=== PATIENT | female | born 2000 | race Caucasian/White ===

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

== ENCOUNTER 2018-04-03 23:03 | Emergency (ER) | payer OTHER ==
[2018-04-03 23:54] VITALS: BP 137/92; PULSE 92; RESP 16; TEMP 98.3
[2018-04-03] MEDS ORDERED: DEXAMETHASONE SOD PHOSPHATE 10 MG/ML 1 ML VIAL IV STA (23:59)
[2018-04-03] MEDS ORDERED: CLARITHROMYCIN 500 MG TAB PO STA (23:59)
[2018-04-04] MEDS ORDERED: DEXAMETHASONE 4 MG TAB PO STA (00:04)
--- NOTE | 2018-04-04 00:04 | ED ---
ENT HPI - General Chief complaint: ENT Stated complaint: ENT Time Seen by Provider: 04/03/18 23:55 Source: patient Mode of arrival: ambulatory Limitations: no limitations - History of Present Illness Initial comments: This is a 17-year-old female the ER for evaluation. She presents today for evaluation of throat pain sore throat right ear pain. Symptoms ebbing 2 days or so. Patient is no other known significant contacts. No fevers. Patient denies any difficulty swallowing. Does admit to some swelling of her neck. complaint: sore throat -: days(s) (2) Location: R ear, throat Severity: mild Severity scale (1-10): 3 Quality: aching Consistency: constant Improves with: none Worsens with: none Context- Ear: other (Serum impaction) Associated Symptoms: sore throat - Related Data Previous Rx's Medication Instructions Recorded Famotidine [Pepcid] 40 mg PO HS #20 tab 12/15/17 Allergies Allergy/AdvReac Type Severity Reaction Status Date / Time amoxicillin Allergy Anaphylaxis Verified 04/03/18 23:54 Penicillins Allergy Anaphylaxis Verified 04/03/18 23:54 Review of Systems ROS Statement: Those systems with pertinent positive or pertinent negative responses have been documented in the HPI. ROS Other: All systems not noted in ROS Statement are negative. Past Medical History Past Medical History: Asthma History of Any Multi-Drug Resistant Organisms: None Reported Past Surgical History: No Surgical Hx Reported Past Psychological History: No Psychological Hx Reported Smoking Status: Never smoker Past Alcohol Use History: None Reported Past Drug Use History: None Reported General Exam Limitations: no limitations General appearance: alert, in no apparent distress Head exam: Present: atraumatic, normocephalic, normal inspection Eye exam: Present: normal appearance, PERRL, EOMI. Absent: scleral icterus, conjunctival injection, periorbital swelling ENT exam: Present: mucous membranes moist, TM's normal bilaterally (Right TM cerumen impaction), other (Bilateral pharyngeal erythema, tonsillar stones and edema, left-sided exudate) Neck exam: Present: normal inspection. Absent: tenderness, meningismus, lymphadenopathy Respiratory exam: Present: normal lung sounds bilaterally. Absent: respiratory distress, wheezes, rales, rhonchi, stridor Cardiovascular Exam: Present: regular rate, normal rhythm, normal heart sounds. Absent: systolic murmur, diastolic murmur, rubs, gallop, clicks GI/Abdominal exam: Present: soft, normal bowel sounds. Absent: distended, tenderness, guarding, rebound, rigid Extremities exam: Present: normal inspection, full ROM, normal capillary refill. Absent: tenderness, pedal edema, joint swelling, calf tenderness Back exam: Present: normal inspection Neurological exam: Present: alert, oriented X3, CN II-XII intact Psychiatric exam: Present: normal affect, normal mood Skin exam: Present: warm, dry, intact, normal color. Absent: rash Course Vital Signs 04/03/18 23:52 Temperature 98.3 F Pulse Rate 92 Respiratory 16 Rate Blood Pressure 137/92 O2 Sat by Pulse 100 Oximetry - Reevaluation(s) Reevaluation #1: 04/04/18 00:01 Medical record is reviewed Reevaluation #2: 04/04/18 00:01 Symptoms resolved or improved Medical Decision Making - Medical Decision Making 88 female the ER for evaluation. Patient resents today for sore throat. Patient has history of tonsillar stones, positive pharyngitis currently we'll place on antibiotics after getting steroid. Patient also has right ear irrigated, the hearing is much improved Disposition Clinical Impression: Acute pharyngitis, Tonsil stone, Impacted cerumen of right ear Disposition: HOME SELF-CARE Condition: Good Instructions: Pharyngitis (ED) Is patient prescribed a controlled substance at d/c from ED?: No Referrals: None,Stated [Primary Care Provider] - 1-2 days
== END 2018-04-04 00:45 | disposition home or self-care (01) ==
LOC: EC 23:03
DX: J35.8 Other chronic diseases of tonsils and adenoids (principal); H61.21 Impacted cerumen, right ear; Z88.0 Allergy status to penicillin; Z53.8 Procedure and treatment not carried out for other reasons
CPT/HCPCS: 99283; 69209; J8540

== ENCOUNTER 2018-06-04 19:09 | Emergency (ER) | payer OTHER ==
[2018-06-04 19:16] VITALS: TEMP 98.6
[2018-06-04] MEDS ORDERED: methylPREDNISolone SOD SUCCI 125 MG/2 ML VIAL IM ONE (19:35)
[2018-06-04] MEDS ORDERED: IPRATROPIUM-ALBUTEROL 3 ML NEB INHALATION STA (19:35)
[2018-06-04] MEDS ORDERED: guaiFENesin-DM 600/30MG 1 EACH TAB.ER.12H PO STA (19:35)
--- NOTE | 2018-06-04 19:38 | ED ---
General Adult HPI - General Chief complaint: Upper Respiratory Infection Stated complaint: CHEST CONGESTION, SORE THROAT Time Seen by Provider: 06/04/18 19:18 Source: patient Mode of arrival: ambulatory Limitations: no limitations - History of Present Illness Initial comments: 17-year-old female patient presents to the emergency department today for eval uation of cough, shortness of breath, hemoptysis. Patient states she's been coughing for the last 3 weeks. States after coughing she does have a knot-like pain to the left upper back. States that she has had hot and cold flashes and has felt feverish. States she is also experiencing sore throat with this. States that she does have a history of asthma. Patient states she has been coughing up "chunks" of blood. States her sister was diagnosed with influenza a couple of weeks ago and her mother was recently diagnosed. She denies taking any medications for symptoms. Patient denies any recent rash, abdominal pain, nausea, vomiting, diarrhea, constipation, back pain, numbness, tingling, dizziness, weakness, hematuria, dysuria, urinary urgency, urinary frequency, headache, visual changes, or any other complaints. - Related Data Home Medications Medication Instructions Recorded Confirmed Cetirizine HCl [Zyrtec] 10 mg PO DAILY PRN 06/04/18 06/04/18 Ibuprofen [Motrin] 800 mg PO DAILY PRN 06/04/18 06/04/18 Previous Rx's Medication Instructions Recorded Albuterol Sulfate [Proair Hfa] 1 - 2 puff INHALATION Q6HR PRN #1 06/04/18 inhaler guaiFENesin-DM 600/30MG [Mucinex 1 each PO Q12HR #10 tab.er.12h 06/04/18 Dm] predniSONE 50 mg PO DAILY #5 tablet 06/04/18 Allergies Allergy/AdvReac Type Severity Reaction Status Date / Time amoxicillin Allergy Anaphylaxis Verified 06/04/18 20:45 Penicillins Allergy Anaphylaxis Verified 06/04/18 20:45 Review of Systems ROS Statement: Those systems with pertinent positive or pertinent negative responses have been documented in the HPI. ROS Other: All systems not noted in ROS Statement are negative. Past Medical History Past Medical History: Asthma History of Any Multi-Drug Resistant Organisms: None Reported Past Surgical History: No Surgical Hx Reported Past Psychological History: No Psychological Hx Reported Smoking Status: Never smoker Past Alcohol Use History: None Reported Past Drug Use History: None Reported General Exam Limitations: no limitations General appearance: alert, in no apparent distress, other (Physical well- developed, well-nourished adult female patient in no acute distress. Vital signs upon presentation are temperature 98.6F, pulse 90, respirations 18, blood pressure 134/85, pulse ox 98% on room air.) Eye exam: Present: normal appearance, PERRL, EOMI. Absent: scleral icterus, conjunctival injection, periorbital swelling ENT exam: Present: normal exam, normal oropharynx, mucous membranes moist Respiratory exam: Present: normal lung sounds bilaterally. Absent: respiratory distress, wheezes, rales, rhonchi, stridor Cardiovascular Exam: Present: regular rate, normal rhythm, normal heart sounds. Absent: systolic murmur, diastolic murmur, rubs, gallop, clicks GI/Abdominal exam: Present: soft, normal bowel sounds. Absent: distended, ten derness, guarding, rebound, rigid Neurological exam: Present: alert, oriented X3, CN II-XII intact Psychiatric exam: Present: normal affect, normal mood Skin exam: Present: warm, dry, intact, normal color. Absent: rash Course Vital Signs 06/04/18 06/04/18 06/04/18 19:13 21:04 21:21 Temperature 98.6 F Pulse Rate 90 90 90 Respiratory 18 16 Rate Blood Pressure 134/85 145/90 O2 Sat by Pulse 98 97 Oximetry 06/04/18 21:33 Temperature Pulse Rate 88 Respiratory Rate Blood Pressure O2 Sat by Pulse Oximetry Medical Decision Making - Medical Decision Making 17-year-old female patient presents to the emergency department today for evaluation of cough 3 weeks. Patient reports some shortness of breath and pain to the left upper back with this. Physical examination is unremarkable. Lungs are clear to auscultation with good air movement. She is breathing without difficulty. Vitals were reviewed and were unremarkable. Patient does take control so we did obtain a d-dimer which was negative. Chest x-ray showed no acute cardiopulmonary process. Patient symptoms are consistent with acute bronchitis and we'll treat with Mucinex DM, steroids, and Pro Air inhaler. She'll be discharged to follow-up with her primary care physician for recheck in 1-2 days. Return parameters were discussed in detail. She verbalizes understanding and agrees with this plan. - Lab Data Lab Results 06/04/18 Range/Units 19:58 D-Dimer 0.40 (<0.60) mg/L FEU - Radiology Data Radiology results: report reviewed, image reviewed Two-view x-ray of the chest is obtained. Report was reviewed in its entirety. Impression by Dr. Lugo shows no active cardiopulmonary disease. Normal heart. No change. Disposition Clinical Impression: Acute bronchitis Disposition: HOME SELF-CARE Condition: Good Instructions (If sedation given, give patient instructions): Acute Bronchitis (ED) Additional Instructions: Take medications as directed. Follow up through primary care physician for recheck in 1-2 days. Return to the emergency department immediately for any new, worsening, or concerning symptoms. Prescriptions: guaiFENesin-DM 600/30MG [Mucinex Dm] 1 each PO Q12HR #10 tab.er.12h predniSONE 50 mg PO DAILY #5 tablet Albuterol Sulfate [Proair Hfa] 1 - 2 puff INHALATION Q6HR PRN #1 inhaler PRN Reason: Shortness Of Breath Is patient prescribed a controlled substance at d/c from ED?: No Referrals: None,Stated [Primary Care Provider] - 1-2 days Time of Disposition: 20:40
[2018-06-04] MEDS ORDERED: predniSONE 50 MG TAB PO STA (20:04)
--- NOTE | 2018-06-04 20:27 | XR ---
EXAMINATION TYPE: XR chest 2V DATE OF EXAM: 06/04/2018 COMPARISON: 09/10/2011 HISTORY: Cough TECHNIQUE: Frontal and lateral views of the chest are obtained. FINDINGS: Heart and mediastinum are normal. Lungs are clear. Diaphragm is normal. Bony thorax is int act. IMPRESSION: No active cardiopulmonary disease. Normal heart. No change.
[2018-06-04 21:06] VITALS: BP 145/90; RESP 16
[2018-06-04 21:35] VITALS: PULSE 88
== END 2018-06-04 21:40 | disposition home or self-care (01) ==
LOC: EC 19:09
DX: J20.9 Acute bronchitis, unspecified (principal); Z79.3 Long term (current) use of hormonal contraceptives; Z53.20 Procedure and treatment not carried out because of patient's decision for unspecified reasons; Z88.0 Allergy status to penicillin; Z87.09 Personal history of other diseases of the respiratory system
CPT/HCPCS: 36415; 94640; 85379; 71046; 99285; J7512

== ENCOUNTER 2019-01-30 14:21 | Emergency (ER) | payer OTHER ==
[2019-01-30] MEDS ORDERED: predniSONE 20 MG TAB PO STA (14:35)
[2019-01-30] MEDS ORDERED: FAMOTIDINE 20 MG TAB PO STA (14:35)
[2019-01-30] MEDS ORDERED: IPRATROPIUM-ALBUTEROL 3 ML NEB INHALATION STA (14:35)
--- NOTE | 2019-01-30 14:40 | ED ---
General Adult HPI - General Chief complaint: Upper Respiratory Infection Stated complaint: Cough Time Seen by Provider: 01/30/19 14:24 Source: patient Mode of arrival: ambulatory Limitations: no limitations - History of Present Illness Initial comments: Patient is a 18-year-old female with history of asthma as presenting to emergency Department with a chief complaint of a cough. Patient reports her symptoms initially began about 3 weeks or and of gradually increasing severity. Patient reports a productive cough with white/yellow sputum production, occasional wheezing and shortness of breath. Patient does report ear fullness but no otalgia. She is also complaining of a sore throat, sinus congestion and occasional lightheadedness after coughing fits. Patient reports she used an albuterol inhaler and DayQuil at home with minimal improvement. Patient states that she has chills but never actually taken her temperature. Patient denies nausea, vomiting, diarrhea, abdominal pain, back pain, chest pain. - Related Data Previous Rx's Medication Instructions Recorded Albuterol Sulfate [Proair Hfa] 1 - 2 puff INHALATION Q6HR PRN #1 06/04/18 inhaler Albuterol Inhaler [Ventolin Hfa 1 - 2 puff INHALATION RT-Q6H PRN 01/30/19 Inhaler] #1 inhaler Albuterol Nebulized [Ventolin 2.5 mg INHALATION Q4H PRN #25 nebu 01/30/19 Nebulized] Azithromycin [Zithromax Z-pack] 0 mg PO DIRECTED #1 pack 01/30/19 predniSONE 50 mg PO DAILY #5 tab 01/30/19 Allergies Allergy/AdvReac Type Severity Reaction Status Date / Time amoxicillin Allergy Anaphylaxis Verified 01/30/19 14:28 Penicillins Allergy Anaphylaxis Verified 01/30/19 14:28 Review of Systems ROS Statement: Those systems with pertinent positive or pertinent negative responses have been documented in the HPI. ROS Other: All systems not noted in ROS Statement are negative. Past Medical History Past Medical History: Asthma History of Any Multi-Drug Resistant Organisms: None Reported Past Surgical History: No Surgical Hx Reported Past Psychological History: No Psychological Hx Reported Smoking Status: Never smoker Past Alcohol Use History: None Reported Past Drug Use History: None Reported General Exam Limitations: no limitations General appearance: alert, in no apparent distress, obese (Morbidly obese) Head exam: Present: atraumatic, normocephalic, normal inspection Eye exam: Present: normal appearance Pupils: Present: normal accommodation ENT exam: Present: normal exam, normal oropharynx (Tonsil stones), mucous membranes moist, TM's normal bilaterally (Fluid behind tympanic membranes bilaterally.), normal external ear exam Neck exam: Present: normal inspection, full ROM Respiratory exam: Present: wheezes (Mild wheezing right lung.) Cardiovascular Exam: Present: regular rate, normal rhythm, normal heart sounds Extremities exam: Present: normal inspection, full ROM Back exam: Present: normal inspection, full ROM Neurological exam: Present: alert, oriented X3 Psychiatric exam: Present: normal affect, normal mood Skin exam: Present: warm, intact, normal color Course Vital Signs 01/30/19 01/30/19 01/30/19 14:26 15:05 15:11 Temperature 97.9 F Pulse Rate 111 H 112 H 102 H Respiratory 18 20 18 Rate Blood Pressure 144/84 O2 Sat by Pulse 96 Oximetry Medical Decision Making - Medical Decision Making Patient is a 18-year-old female with history of asthmas presenting to emergency Department with a chief complaint of a cough. Physical examination is only indicative of some mild wheezing bilaterally and fluid in the ears. Patient was given a DuoNeb treatment. On reevaluation patient reports improvement in her breathing resolution of the shortness of breath. On auscultation patient has no wheezing. Patient was given a penicillin 60 mg of prednisone. Patient will be discharged with 5 days of prednisone and a Z-Wilbert considering the patient has had the cough for about 3 weeks. Also for life warm for the patient to obtain a nebulizer and nebulizer albuterol. I also discussed the importance of establishing a relationship with a primary care physician considering she has a chronic condition. I suspect the patient has bronchitis and the coughing is only exacerbated due to the underlying asthma. Strict return parameters were thoroughly discussed with patient was understanding and agreeable. Case discussed physician. Disposition Clinical Impression: Bronchitis Disposition: HOME SELF-CARE Condition: Stable Instructions (If sedation given, give patient instructions): Acute Bronchitis (ED) Additional Instructions: Please take prescribed medication as directed. Please follow-up with primary care. Please return to emergency department if symptoms worsen. Prescriptions: predniSONE 50 mg PO DAILY #5 tab Albuterol Inhaler [Ventolin Hfa Inhaler] 1 - 2 puff INHALATION RT-Q6H PRN #1 inhaler PRN Reason: Shortness Of Breath Albuterol Nebulized [Ventolin Nebulized] 2.5 mg INHALATION Q4H PRN #25 nebu PRN Reason: difficulty in breathing Azithromycin [Zithromax Z-pack] 0 mg PO DIRECTED #1 pack Is patient prescribed a controlled substance at d/c from ED?: No Referrals: None,Stated [Primary Care Provider] - 1-2 days Josué Finch MD [REFERRING] - 1-2 days Time of Disposition: 15:28
[2019-01-30 14:41] VITALS: TEMP 97.9
--- NOTE | 2019-01-30 14:49 | XR ---
EXAMINATION TYPE: XR chest 2V DATE OF EXAM: 01/30/2019 COMPARISON: 06/04/2018 HISTORY: Cough TECHNIQUE: Frontal and lateral views of the chest are obtained. FINDINGS: Heart and mediastinum are normal. Lungs are clear. Diaphragm is normal. Bony thorax appear s normal. IMPRESSION: Normal chest. No change.
[2019-01-30 15:12] VITALS: RESP 18
[2019-01-30 15:46] VITALS: BP 140/78; PULSE 99
== END 2019-01-30 15:46 | disposition home or self-care (01) ==
LOC: EC 14:21
DX: J40 Bronchitis, not specified as acute or chronic (principal); J35.8 Other chronic diseases of tonsils and adenoids; Z88.0 Allergy status to penicillin
CPT/HCPCS: 94640; 71046; 99285; J7512

== ENCOUNTER 2019-04-25 23:29 | Outpatient (CLI) | payer SELFPAY ==
[2019-04-25] MEDS ORDERED: LACTATED RINGERS 1,000 ML IV SCH (23:45)
[2019-04-25] MEDS ORDERED: ONDANSETRON 4 MG/2 ML VIAL IVP STA (23:51)
[2019-04-26 00:18] LABS: Basophils # (A) 0.1 k/uL (0-0.2); Basophils % (A) 2 %; Eosinophils # (A) 0.1 k/uL (0-0.7); Eosinophils % (A) 1 %; HCT 38.1 % (34.0-46.0); HGB 12.4 gm/dL (11.4-16.0); Lymphocytes # (A) 1.5 k/uL (1.0-4.8); Lymphocytes % (A) 24 %; MCHC 32.6 g/dL (31.0-37.0); Mean Platelet Volume 6.9; Monocytes # (A) 0.5 k/uL (0-1.0); Monocytes % (A) 8 %; Neutrophils % (A) 63 %; Platelet Count 299 k/uL (150-450); RBC 4.28 m/uL (3.80-5.40); RDW 13.3 % (11.5-15.5); WBC 6.3 k/uL (4.0-11.0)
--- NOTE | 2019-04-26 00:54 | US ---
EXAMINATION TYPE: US OB >= 14 wk fetus DATE OF EXAM: 04/26/2019 COMPARISON: None CLINICAL HISTORY: No care Complete OB USDizziness. TECHNIQUE: Transabdominal (TA) GESTATIONAL AGE / DATING Physician Established: Not yet established Dates by LMP: (24 weeks/1 days) EDC: 08/15/2019 Dates by First Scan: No previous this is first scan Dates by Current Scan: (24 weeks/1 days) EDC: 08/15/2019 SURVEY IUP: Single PLACENTA: Posterior PREVIA: No Previa SARAH: 15.69 cm Normal CERVICAL LENGTH (transabdominal: norm > 3.0cm): 3.4 cm BIOMETRY PRESENTATION: Vertex LIE: Longitudinal BPD: 6.33 cm 25 weeks / 4 days HC: 21.96 cm 24 weeks / 0 days AC: 19.30 cm 24 weeks / 0 days FL: 4.44 cm 24 weeks / 4 days ESTIMATED WEIGHT IN GRAMS: 683.16 grams ESTIMATED WEIGHT IN LBS/OZ: 1 lbs. 8 oz. WEIGHT PERCENTAGE BASED ON ESTABLISHED DATES: 49% HC/AC: 1.14 cm Normal FL/AC: 22.99 cm Normal HEART RATE: 165 bpm RHYTHM: Normal MATERNAL WALL MEASUREMENT: 5.3 cm from skin to anterior uterine wall (if exam limited due to body hab itus). IMPRESSION: The ultrasound gestational age is 24 weeks and 1 day. No complicating process seen.
[2019-04-26 01:19] LABS: Appearance,Urine Clear (Clear); Bilirubin,Urine Negative (Negative); Blood,Urine Negative (Negative); Color,Urine Yellow; Glucose,Urine (UA) Negative (Negative); Ketones,Urine Negative (Negative); Leukocyte Esterase,Urine Negative (Negative); Nitrite,Urine Negative (Negative); Protein,Urine Negative (Negative); Urobilinogen,Urine <2.0 mg/dL (<2.0)
[2019-04-26 01:31] LABS: Amphetamine Screen,Urine Not Detected (NotDetected); Barbiturate Screen,Urine Not Detected (NotDetected); Benzodiazepines Screen,Urine Not Detected (NotDetected); Cocaine Screen,Urine Not Detected (NotDetected); Methadone Screen, Urine Not Detected (NotDetected); Opiate Screen,Urine Not Detected (NotDetected); Oxycodone Screen, Urine Not Detected (NotDetected); Phencyclidine Screen,Urine Not Detected (NotDetected); Tricyclic Antidepressant,Urine Not Detected (NotDetected); Urn Cannabinoid Scrn Not Detected (NotDetected)
[2019-04-26 02:20] VITALS: BP 138/81; PULSE 104; RESP 16; TEMP 98
[2019-04-26 14:02] LABS: HIV 1 AB Non-Reactive (Non-Reactive); HIV 2 AB Non-Reactive (Non-Reactive); HIV AB P24 Non-Reactive (Non-Reactive); HIV P24 AG Non-Reactive (Non-Reactive)
[2019-04-26 14:32] LABS: Hepatitis B Surface Antigen Non-Reactive (Non-Reactive)
--- NOTE | 2019-04-27 11:26 | P.MSEPDOC ---
Presenting Problems - Arrival Data Date of Arrival on Unit: 04/26/19 Time of Arrival on Unit: 23:29 Mode of Transport: Portable - Complaint OB-Reason for Admission/Chief Complaint: Other Comment: Patient here for decreased appetite. Patient has not received care but states she was seen at [facility] last week with high blood pressure. Medical History - Information : 1 Para: 0 Term: 0 : 0 Abortions: Spontaneous or Elective: 0 Number of Living Children: 1 - Gestational Age Gestational Age by VELIA (wks/days): 24 Weeks and 1 Days - History Complications: No Care Review of Systems - Review of Systems Constitutional: No problems Breast: No problems ENT: No problems Cardiovascular: No problems Respiratory: No problems Gastrointestinal: No problems Genitourinary: No problems Musculoskeletal: No problems Neurological: No problems Skin: No problems Vital Signs - Temperature Temperature: 98.0 F Temperature Source: Temporal Artery Scan - Pulse Right Brachial Pulse Rate: 104 Pulse Assessment Method: Automatic Cuff - Respirations Respiratory Rate: 16 Oxygen Delivery Method: Room Air O2 Sat by Pulse Oximetry: 100 - Blood Pressure Right Arm Blood Pressure: 138/81 Blood Pressure Mean: 100 Blood Pressure Source: Automatic Cuff Medical Screen Scoring (Pre) - Cervical Exam Dilation: Exam Deferred Effacement: Exam Deferred Membranes: Intact - Uterine Contractions Frequency: N/A Duration: N/A Intensity: N/A - Maternal Vital Signs Maternal Temperature: N/A Maternal Blood Pressure: N/A Signs of Preeclampsia: N/A Maternal Respirations: N/A - Maternal Trauma Maternal Trauma: N/A - Assessment - Baby A Baseline FHR: 145 - Total Score - Baby A Total Score - Baby A: 0 - Total Score - Baby B Total Score - Baby B: 0 - Total Score - Baby C Total Score - Baby C: 0 - Level of Risk - Baby A Level of Risk - Baby A: Low (0-5) - Level of Risk - Baby B Level of Risk - Baby B: Low (0-5) - Level of Risk - Baby C Level of Risk - Baby C: Low (0-5) Physician Notification (Pre) - Physician Notified Physician Notified Date: 04/26/19 Physician Notified Time: 00:41 New Order Received: Yes - Notification Comment Comment: Dr. Leon phoned in for update on triage patient. RN reported that . heart tones were between 140-150. Patients blood pressure was normal. RN awaiting labs. IV hydration infusing on patient. Patient states she feels improved. US completed. states patient may be discharged if labs returned normal and patient feels better. Patient updated on plan of care. Patients labs resulted. All labs WNL. Patients IV removed. Patient instructed to receive care as soon as possible. Discharge instructions given to patient.Patient and significant other state understanding. Disposition - Disposition OB Disposition: Discharge to home Discharge Date: 04/26/19 Discharge Time: 02:15 I agree with the RN Medical Screening Exam: Yes Risk & Benefit of care provided described in d/c instruction: Yes Diagnosis: RELATED CONDITIONS, UNSPECIFIED, SECOND TRIMESTER
[2019-04-28 11:15] LABS: C. trachomatis,PCR Negative (Neg,Equiv); Chlamydia trachomatis Source Urine
[2019-04-28 11:21] LABS: N. gonorrhoeae,PCR Negative (Neg,Equiv); Neisseria Source Urine
== END 2019-04-26 02:15 | disposition home or self-care (01) ==
LOC: FBPOP 23:29
PROVIDERS: ATTEND Obstetrics & Gynecology
DX: O26.92 Pregnancy related conditions, unspecified, second trimester (principal); Z3A.24 24 weeks gestation of pregnancy
CPT/HCPCS: 76805; 80306; 81003; 82947; 85025; 86762; 86780; 86850; 86900; 86901; 87340; 87390; 87491; 87591; 96360; 96361; 99214

== ENCOUNTER 2019-06-13 | Emergency (ER) | payer OTHER | END 2019-06-13 15:51 | disposition home or self-care (01) | CPT/HCPCS: 71046; 87502; 99283 ==

== ENCOUNTER 2020-01-16 13:40 | Emergency (ER) | payer OTHER ==
[2020-01-16 14:08] VITALS: BP 153/96; PULSE 90; RESP 18; TEMP 98.8
[2020-01-16] MEDS ORDERED: SODIUM CHLORIDE 0.9% 1,000 ML IV ONE (14:54)
[2020-01-16 15:15] LABS: Basophils % (A) 0 %; Eosinophils # (A) 0.1 k/uL (0-0.7); Eosinophils % (A) 1 %; HCT 42.8 % (34.0-46.0); HGB 13.7 gm/dL (11.4-16.0); Lymphocytes # (A) 1.6 k/uL (1.0-4.8); Lymphocytes % (A) 15 %; MCH 27.1 pg (25.0-35.0); MCHC 31.9 g/dL (31.0-37.0); MCV 84.8 fL (80.0-100.0); Mean Platelet Volume 6.2; Monocytes # (A) 0.6 k/uL (0-1.0); Monocytes % (A) 6 %; Neutrophils # (A) 8.3 k/uL (1.3-7.7); Neutrophils % (A) 77 %; Platelet Count 327 k/uL (150-450); RBC 5.05 m/uL (3.80-5.40); RDW 13.8 % (11.5-15.5); WBC 10.7 k/uL (3.8-10.6)
[2020-01-16 15:16] LABS: Appearance,Urine Clear (Clear); Bilirubin,Urine Negative (Negative); Blood,Urine Negative (Negative); Color,Urine Light Yellow; Glucose,Urine (UA) Negative (Negative); Ketones,Urine Negative (Negative); Leukocyte Esterase,Urine Negative (Negative); Nitrite,Urine Negative (Negative); Protein,Urine Negative (Negative); Specific Gravity,Urine 1.011 (1.001-1.035); Urobilinogen,Urine <2.0 mg/dL (<2.0)
[2020-01-16 15:25] LABS: ALT 148 U/L (4-34); AST 203 U/L (14-36); African American GFR (CKD) >90 (>60 ml/min/1.73 sqM); Albumin 4.1 g/dL (3.5-5.0); Alkaline Phosphatase 125 U/L (38-126); Anion Gap 7 mmol/L; Blood Urea Nitrogen 18 mg/dL (7-17); Calcium 9.7 mg/dL (8.4-10.2); Carbon Dioxide 26 mmol/L (22-30); Chloride 104 mmol/L (98-107); Glucose 104 mg/dL (74-99); Non-African American GFR(CKD) >90 (>60 ml/min/1.73 sqM); Potassium 4.6 mmol/L (3.5-5.1); Sodium 137 mmol/L (137-145); Total Bilirubin 0.7 mg/dL (0.2-1.3); Total Protein 7.1 g/dL (6.3-8.2)
--- NOTE | 2020-01-16 15:27 | US ---
EXAMINATION TYPE: US gallbladder DATE OF EXAM: 01/16/2020 COMPARISON: US CLINICAL HISTORY: pain . Pain EXAM MEASUREMENTS: Liver Length: 19.0 cm Gallbladder Wall: 0.2 cm CBD: 0.3 cm Right Kidney: 11.5 x 4.5 x 5.6 cm SEVERELY, morbidly obese pt Pancreas: wnl, tail obscured by overlying bowel gas Liver: Enlarged Gallbladder: Multiple, small, mobile gallstones Evidence for sonographic Salazar's sign: No CBD: wnl Right Kidney: wnl, lower pole gassed out IMPRESSION: There are numerous small gallstones. No dilated ducts. No focal liver defect.
[2020-01-16] MEDS ORDERED: MAG HYDROX/AL HYDROX/SIMETH 30 ML, HYOSCYAMINE ELIXIR 10 ML, LIDOCAINE VISCOUS 2% 10 ML PO STA ×3 (15:38)
--- NOTE | 2020-01-16 15:56 | ED ---
General Adult HPI - General Source: patient, RN notes reviewed, old records reviewed Mode of arrival: ambulatory Limitations: no limitations <Bill Das - Last Filed: 01/16/20 16:53> <Coty Cunha - Last Filed: 01/18/20 13:35> - General Chief complaint: Abdominal Pain Stated complaint: Abd Pain Time Seen by Provider: 01/16/20 14:13 - History of Present Illness Initial comments: 19-year-old female patient presents to ED for evaluation of abdominal discomfort. Patient reports that she ate a meal of hamburger's and about an hour later she developed a brown crampy feeling in her epigastric right upper quadrant region. Patient reports that this was quite severe. Patient reports that time of evaluation for discomfort has significantly improved. Patient states that she had a similar event about one week before. Reports some mild epigastric burning. Patient did deliver 6 months ago and is not currently breast-feeding. Systemic: Pt denies fatigue, fever/chills, rash. Pt denies weakness, night sweats, weight loss. Neuro: Pt denies headache, visual disturbances, syncope or pre-syncope. HEENT: Pt denies ocular discharge or irritation, otalgia, rhinorrhea, pharyngitis or notable lymphadenopathy. Cardiopulmonary: Pt denies chest pain, SOB, heart palpitations, dyspnea on exertion. Abdominal/GI: Pt denies n/v/d. : Pt denies dysuria, burning w/ urination, frequency/urgency. Denies new onset urinary or bowel incontinence. MSK: Pt denies myalgia, loss of strength or function in extremities. Neuro: Pt denies new onset weakness, paresthesias. (Bill Das) - Related Data Home Medications Medication Instructions Recorded Confirmed Acetaminophen Tab [Tylenol Tab] 1,000 mg PO Q6HR PRN 01/16/20 01/16/20 Albuterol Sulfate [Proair Hfa] 1 - 2 puff INHALATION RT-Q6H PRN 01/16/20 01/16/20 Norgestimate-Ethinyl Estradiol 1 tab PO DAILY@1100 01/16/20 01/16/20 [Sprintec 28 Day Tablet] Allergies Allergy/AdvReac Type Severity Reaction Status Date / Time amoxicillin Allergy Anaphylaxis Verified 01/16/20 15:41 Penicillins Allergy Anaphylaxis Verified 01/16/20 15:41 Review of Systems ROS Other: All systems not noted in ROS Statement are negative. <Bill Das - Last Filed: 01/16/20 16:53> ROS Other: All systems not noted in ROS Statement are negative. <Coty Cunha - Last Filed: 01/18/20 13:35> ROS Statement: Those systems with pertinent positive or pertinent negative responses have been documented in the HPI. Past Medical History Past Medical History: Asthma History of Any Multi-Drug Resistant Organisms: None Reported Past Surgical History: No Surgical Hx Reported Past Psychological History: No Psychological Hx Reported Smoking Status: Never smoker Past Alcohol Use History: Occasional Past Drug Use History: None Reported <Bill Das - Last Filed: 01/16/20 16:53> General Exam Limitations: no limitations <Bill Das - Last Filed: 01/16/20 16:53> - General Exam Comments Initial Comments: Constitutional: NAD, AOX3, Pt has pleasant affect. HEENT: NC/AT, trachea midline, neck supple, no lymphadenopathy. External ears appear normal, without discharge. Mucous membranes moist. Eyes PERRLA, EOM intact. There is no scleral icterus. No pallor noted. Cardiopulmonary: RRR, no murmurs, rubs or gallops, no JVD noted. Lungs CTAB in anterior and posterior rodney. No peripheral edema. Abdominal exam: Abdomen soft and non-distended. Abdomen mildly tender to palpation epigastric right upper quadrant region. Salazar sign negative.. Bowel sounds active in LLQ. No hepatosplenomegaly. No ecchymosis Neuro: CN II-XII grossly intact. No nuchal rigidity. MSK: No posterior calf tenderness bilaterally, homans sign negative bilaterally. Posterior tibialis and radial pulse +2 bilaterally. Sensation intact in upper and lower extremities. Full active ROM in upper and lower extremities, 5/5 stregnth. (Bill Das) Course Vital Signs 01/16/20 14:04 Temperature 98.8 F Pulse Rate 90 Respiratory 18 Rate Blood Pressure 153/96 O2 Sat by Pulse 100 Oximetry Medical Decision Making - Lab Data Result diagrams: 01/16/20 15:02 01/16/20 15:02 <Bill Das - Last Filed: 01/16/20 16:53> - Lab Data Result diagrams: 01/16/20 15:02 01/16/20 15:02 <Coty Cunha - Last Filed: 01/18/20 13:35> - Medical Decision Making 19-year-old female patient to ED for abdominal pain after eating a fatty meal. Patient vital signs are stable, afebrile. Physical examination display mild amount epigastric right upper quadrant discomfort. Laboratory investigations revealed mild leukocytosis mild transaminitis. Ultrasound displayed numerous gallstones no dilated ducts or focal liver defects. On repeat evaluation patient continues to feel very much improved. Repeat abdominal exam reveals nontender abdomen. I did offer patient [place] the hospital for surgical e valuation due to a gallbladder dysfunction biliary colic. Patient elected declined this time. With preferred to follow up on outpatient basis. I did provide patient surgical follow-up dietary recommendations and strict return precautions. She verbalizes understanding. Case discussed with Dr. Cunah. (Bill Das) I was available for consultation in the emergency department. The history and physical exam were done by the midlevel provider. I was consulted for this patients care. I reviewed the case with the midlevel provider and based on t heir presentation of the patient, I agree with the assessment, medical decision making and plan of care as documented. Chart was dictated using [employer] dictation software. Attempts were made to corre ct any dictation errors however some typographical errors may persist. Patient was seen during a national state of emergency due to the Covid-19 pandemic. (Coty Cunha) - Lab Data Lab Results 01/16/20 01/16/20 01/16/20 Range/Units 15:02 15:02 15:02 WBC 10.7 H (3.8-10.6) k/uL RBC 5.05 (3.80-5.40) m/uL Hgb 13.7 (11.4-16.0) gm/dL Hct 42.8 (34.0-46.0) % MCV 84.8 (80.0-100.0) fL MCH 27.1 (25.0-35.0) pg MCHC 31.9 (31.0-37.0) g/dL RDW 13.8 (11.5-15.5) % Plt Count 327 (150-450) k/uL Neutrophils % 77 % Lymphocytes % 15 % Monocytes % 6 % Eosinophils % 1 % Basophils % 0 % Neutrophils # 8.3 H (1.3-7.7) k/uL Lymphocytes # 1.6 (1.0-4.8) k/uL Monocytes # 0.6 (0-1.0) k/uL Eosinophils # 0.1 (0-0.7) k/uL Basophils # 0.0 (0-0.2) k/uL Sodium (137-145) mmol/L Potassium (3.5-5.1) mmol/L Chloride (98-107) mmol/L Carbon Dioxide (22-30) mmol/L Anion Gap mmol/L BUN (7-17) mg/dL Creatinine (0.52-1.04) mg/dL Est GFR (CKD-EPI)AfAm (>60 ml/min/1.73 sqM) Est GFR (CKD-EPI)NonAf (>60 ml/min/1.73 sqM) Glucose (74-99) mg/dL Calcium (8.4-10.2) mg/dL Total Bilirubin (0.2-1.3) mg/dL AST (14-36) U/L ALT (4-34) U/L Alkaline Phosphatase (38-126) U/L Total Protein (6.3-8.2) g/dL Albumin (3.5-5.0) g/dL Lipase (23-300) U/L Urine Color Light Yellow Urine Appearance Clear (Clear) Urine pH 7.0 (5.0-8.0) Ur Specific [place] 1.011 (1.001-1.035) Urine Protein Negative (Negative) Urine Glucose (UA) Negative (Negative) Urine Ketones Negative (Negative) Urine Blood Negative (Negative) Urine Nitrite Negative (Negative) Urine Bilirubin Negative (Negative) Urine Urobilinogen <2.0 (<2.0) mg/dL Ur Leukocyte Esterase Negative (Negative) Urine HCG, Qual Not Detected (Not Detectd) 01/16/20 Range/Units 15:02 WBC (3.8-10.6) k/uL RBC (3.80-5.40) m/uL Hgb (11.4-16.0) gm/dL Hct (34.0-46.0) % MCV (80.0-100.0) fL MCH (25.0-35.0) pg MCHC (31.0-37.0) g/dL RDW (11.5-15.5) % Plt Count (150-450) k/uL Neutrophils % % Lymphocytes % % Monocytes % % Eosinophils % % Basophils % % Neutrophils # (1.3-7.7) k/uL Lymphocytes # (1.0-4.8) k/uL Monocytes # (0-1.0) k/uL Eosinophils # (0-0.7) k/uL Basophils # (0-0.2) k/uL Sodium 137 (137-145) mmol/L Potassium 4.6 (3.5-5.1) mmol/L Chloride 104 (98-107) mmol/L Carbon Dioxide 26 (22-30) mmol/L Anion Gap 7 mmol/L BUN 18 H (7-17) mg/dL Creatinine 0.64 (0.52-1.04) mg/dL Est GFR (CKD-EPI)AfAm >90 (>60 ml/min/1.73 sqM) Est GFR (CKD-EPI)NonAf >90 (>60 ml/min/1.73 sqM) Glucose 104 H (74-99) mg/dL Calcium 9.7 (8.4-10.2) mg/dL Total Bilirubin 0.7 (0.2-1.3) mg/dL AST 203 H (14-36) U/L ALT 148 H (4-34) U/L Alkaline Phosphatase 125 (38-126) U/L Total Protein 7.1 (6.3-8.2) g/dL Albumin 4.1 (3.5-5.0) g/dL Lipase 88 (23-300) U/L Urine Color Urine Appearance (Clear) Urine pH (5.0-8.0) Ur Specific [place] (1.001-1.035) Urine Protein (Negative) Urine Glucose (UA) (Negative) Urine Ketones (Negative) Urine Blood (Negative) Urine Nitrite (Negative) Urine Bilirubin (Negative) Urine Urobilinogen (<2.0) mg/dL Ur Leukocyte Esterase (Negative) Urine HCG, Qual (Not Detectd) Disposition Is patient prescribed a controlled substance at d/c from ED?: No <Bill Das - Last Filed: 01/16/20 16:53> <Coty Cunha - Last Filed: 01/18/20 13:35> Clinical Impression: Biliary colic Disposition: HOME SELF-CARE Condition: Stable Instructions (If sedation given, give patient instructions): Biliary Colic (ED), Gallstones (ED), Low Fat Diet (ED) Additional Instructions: follow-up with primary care provider and surgeon tomorrow. Low-fat diet. Return to ER if any worsening symptoms. Referrals: None,Stated [Primary Care Provider] - 1-2 days Jamal Romero MD [STAFF PHYSICIAN] - 1-2 days Shelby Viera MD [REFERRING] - 1-2 days
== END 2020-01-16 16:12 | disposition home or self-care (01) ==
LOC: EC 13:40
DX: K80.70 Calculus of gallbladder and bile duct without cholecystitis without obstruction (principal); D72.829 Elevated white blood cell count, unspecified; R74.01 Elevation of levels of liver transaminase levels; J45.909 Unspecified asthma, uncomplicated; Z79.3 Long term (current) use of hormonal contraceptives; Z88.0 Allergy status to penicillin
CPT/HCPCS: 36415; 76705; 80053; 81003; 81025; 83690; 85025; 96360; 99284

== ENCOUNTER → 2021-01-11 | Outpatient (CLI) | payer OTHER ==
[2021-01-11 23:58] LABS: HCT 43.9 % (37.2-46.3); HGB 13.9 g/dL (12.0-15.0); MCH 27.9 pg (27.0-32.0); MCHC 31.7 g/dL (32.0-37.0); MCV 88.2 fL (80.0-97.0); Mean Platelet Volume 9.6 fL (9.5-12.2); Platelet Count 361 X 10*3/uL (140-440); RBC 4.98 X 10*6/uL (4.10-5.20); RDW 13.1 % (11.5-14.5); WBC 9.72 X 10*3/uL (4.50-10.00)
[2021-01-12 04:12] LABS: ALT 47 U/L (8-44); AST 21 U/L (13-35); African American GFR (CKD) 107.2 (60.0-200.0); Albumin 4.2 g/dL (3.8-4.9); Albumin/Globulin Ratio 1.63 (1.60-3.17); Alkaline Phosphatase 107 U/L (41-126); BUN/Creat Ratio 15.46 Ratio (12.00-20.00); Blood Urea Nitrogen 13.7 mg/dL (9.0-27.0); Calcium 9.5 mg/dL (8.7-10.3); Carbon Dioxide 18.4 mmol/L (21.6-31.8); Chloride 102 mmol/L (96-109); Chol/HDL Ratio 3.62 Ratio; Globulin 2.6 g/dL (1.6-3.3); Glucose 101 mg/dL (70-110); LDL Cholesterol,Calculated 98.4 mg/dL (0.0-131.0); Non-African American GFR(CKD) 92.5 (60.0-200.0); Potassium 4.4 mmol/L (3.5-5.5); Sodium 137 mmol/L (135-145); Total Bilirubin <0.20 mg/dL (0.30-1.20); Total Protein 6.8 g/dL (6.2-8.2)
== END | disposition home or self-care (01) ==
LOC: LABWHC1 16:13
PROVIDERS: ATTEND Physician Assistant Medical
DX: R00.2 Palpitations (principal); R53.83 Other fatigue
CPT/HCPCS: 36415; 80053; 80061; 83036; 84443; 85027

== ENCOUNTER 2021-04-01 22:33 | Emergency (ER) | payer OTHER ==
--- NOTE | 2021-04-01 23:00 | ED ---
General Adult HPI - General Stated complaint: Cough, SOB Source: patient, RN notes reviewed Mode of arrival: ambulatory Limitations: no limitations - History of Present Illness Initial comments: 20-year-old female presents emergency Department with chief complaint of possible COVID-19. He states that she was exposed by her son was positive for RSV and COVID-19. Patient states she has productive cough, coughing continuously. Patient states that she has been nauseated no fevers recently but states that she had fevers. Patient denies any nausea vomiting diarrhea constipation. Patient has no complaints. - Related Data Home Medications Medication Instructions Recorded Confirmed Acetaminophen Tab [Tylenol Tab] 1,000 mg PO Q6HR PRN 01/16/20 01/16/20 Albuterol Sulfate [Proair Hfa] 1 - 2 puff INHALATION RT-Q6H PRN 01/16/20 01/16/20 Norgestimate-Ethinyl Estradiol 1 tab PO DAILY@1100 01/16/20 01/16/20 [Sprintec 28 Day Tablet] Allergies Allergy/AdvReac Type Severity Reaction Status Date / Time amoxicillin Allergy Anaphylaxis Verified 01/16/20 15:41 Penicillins Allergy Anaphylaxis Verified 01/16/20 15:41 Review of Systems ROS Statement: Those systems with pertinent positive or pertinent negative responses have been documented in the HPI. ROS Other: All systems not noted in ROS Statement are negative. Past Medical History Past Medical History: Asthma History of Any Multi-Drug Resistant Organisms: None Reported Past Surgical History: No Surgical Hx Reported Past Psychological History: No Psychological Hx Reported Smoking Status: Never smoker Past Alcohol Use History: Occasional Past Drug Use History: None Reported General Exam General appearance: alert, in no apparent distress Head exam: Present: atraumatic, normocephalic, normal inspection Eye exam: Present: normal appearance, PERRL, EOMI. Absent: scleral icterus, conjunctival injection, periorbital swelling ENT exam: Present: normal exam, normal oropharynx, mucous membranes moist, TM's normal bilaterally Neck exam: Present: normal inspection, full ROM. Absent: tenderness, meningismus, lymphadenopathy Respiratory exam: Present: normal lung sounds bilaterally. Absent: respiratory distress, wheezes, rales, rhonchi, stridor Cardiovascular Exam: Present: regular rate, normal rhythm, normal heart sounds. Absent: systolic murmur, diastolic murmur, rubs, gallop, clicks Course Vital Signs 04/01/21 22:58 Temperature 98.3 F Pulse Rate 102 H Respiratory 18 Rate Blood Pressure 174/117 O2 Sat by Pulse 100 Oximetry Medical Decision Making - Medical Decision Making 20-year-old presented for possible COVID-19. Patient son recent is positive but also has RSV. Patient's COVID-19 is negative patient has no hypoxia patient was discharged in stable condition most likely related from RSV. - Lab Data Lab Results 04/01/21 Range/Units 23:01 Coronavirus (PCR) Not Detected (Not Detectd) Disposition Clinical Impression: URI (upper respiratory infection) Disposition: HOME SELF-CARE Condition: Stable Instructions (If sedation given, give patient instructions): Upper Respiratory Infection (ED) Additional Instructions: Please return to the Emergency Department if symptoms worsen or any other concerns. Is patient prescribed a controlled substance at d/c from ED?: No Referrals: Anamaria Casillas DO [Primary Care Provider] - 1-2 days Time of Disposition: 23:55
[2021-04-01 23:01] VITALS: PULSE 102; RESP 18; TEMP 98.3
[2021-04-02 00:19] VITALS: BP 160/98
== END 2021-04-02 00:15 | disposition home or self-care (01) ==
LOC: EC 22:33
DX: J06.9 Acute upper respiratory infection, unspecified (principal); J45.909 Unspecified asthma, uncomplicated; Z88.0 Allergy status to penicillin; Z20.822 Contact with and (suspected) exposure to COVID-19
CPT/HCPCS: 87635; 99283

== ENCOUNTER → 2021-05-01 | Outpatient (CLI) | payer OTHER ==
[2021-05-01 18:23] LABS: African American GFR (CKD) 110.4 (60.0-200.0); Albumin 4.1 g/dL (3.8-4.9); Anion Gap 12.3 mmol/L (10.00-18.00); BUN/Creat Ratio 18.38 Ratio (12.00-20.00); Blood Urea Nitrogen 15.9 mg/dL (9.0-27.0); Calcium 9.1 mg/dL (8.7-10.3); Carbon Dioxide 21.4 mmol/L (20.0-27.5); Non-African American GFR(CKD) 95.2 (60.0-200.0); Phosphorus 2.8 mg/dL (2.4-5.1); Potassium 4.2 mmol/L (3.5-5.5)
== END | disposition home or self-care (01) ==
LOC: LABWHC1 12:54
PROVIDERS: ATTEND Internal Medicine
DX: R06.00 Dyspnea, unspecified (principal); R00.2 Palpitations; R55 Syncope and collapse
CPT/HCPCS: 36415; 80069; 85379

== ENCOUNTER → 2021-05-06 | Outpatient (CLI) | payer OTHER | END | disposition home or self-care (01) | LOC: RADCTMAIN 08:30 | PROVIDERS: ATTEND Internal Medicine | DX: Z53.9 Procedure and treatment not carried out, unspecified reason (principal) ==

== ENCOUNTER → 2021-05-08 | Outpatient (CLI) | payer OTHER ==
--- NOTE | 2021-05-08 11:17 | CT ---
EXAMINATION TYPE: CT angio chest DATE OF EXAM: 05/08/2021 COMPARISON: Chest x-ray April 03, 2021 HISTORY: PE CT DLP: 915.80 mGycm. Automated Exposure Control for Dose Reduction was Utilized. CONTRAST: CTA scan of the thorax is performed without and with IV Contrast, patient injected with 100 ml mL of Isovue 370, pulmonary embolism protocol. MIP Images are created on CT scanner and reviewed. FINDINGS: Exam is noted suboptimal due to patient's large body habitus LUNGS: The lungs are grossly clear, there is no concerning parenchymal mass or nodule identified. T here is no pleural effusion or pneumothorax seen. The tracheobronchial tree is patent. MEDIASTINUM: There is poor opacification of the central pulmonary arteries. No large saddle central p ulmonary embolism. Exam is essentially nondiagnostic for emboli pass central branching level. Most de nse contrast within the SVC. There is hyperdense contrast in the aorta without aneurysm or dissection versus the pulmonary arteries. There are no greater than 1 cm hilar or mediastinal lymph nodes. No cardiomegaly or pericardial effusion is seen. OTHER: Visualized liver is hypodense consistent with diffuse fatty infiltration. There is S-shaped sc oliotic curvature. IMPRESSION: Suboptimal essentially nondiagnostic for acute pulmonary embolism. No acute pulmonary pro cess.
== END | disposition home or self-care (01) ==
LOC: RADCTMAIN 10:02
PROVIDERS: ATTEND Internal Medicine
DX: R06.02 Shortness of breath (principal); R00.0 Tachycardia, unspecified
CPT/HCPCS: 71275; Q9967

== ENCOUNTER 2022-01-10 19:14 | Emergency (ER) | payer OTHER ==
[2022-01-10 19:25] VITALS: BP 152/92; PULSE 97; RESP 18; TEMP 98.2
[2022-01-10] MEDS ORDERED: SODIUM CHLORIDE 0.9% 1,000 ML IV STA (21:27)
[2022-01-10] MEDS ORDERED: ONDANSETRON 4 MG/2 ML VIAL IVP STA ×2 (21:27→22:32)
[2022-01-10] MEDS ORDERED: ONDANSETRON ODT 4 MG TAB PO STA (22:20)
[2022-01-10 22:49] LABS: Basophils % (A) 0 %; Eosinophils # (A) 0.1 k/uL (0-0.7); Eosinophils % (A) 1 %; HCT 41.8 % (34.0-46.0); HGB 13.8 gm/dL (11.4-16.0); Lymphocytes % (A) 30 %; MCH 28.1 pg (25.0-35.0); MCV 85.3 fL (80.0-100.0); Mean Platelet Volume 7.1; Monocytes # (A) 0.5 k/uL (0-1.0); Monocytes % (A) 5 %; Neutrophils # (A) 6.4 k/uL (1.3-7.7); Neutrophils % (A) 63 %; Platelet Count 325 k/uL (150-450); RDW 13.6 % (11.5-15.5)
--- NOTE | 2022-01-10 22:50 | ED ---
General Adult HPI - General Chief complaint: Abdominal Pain Stated complaint: Back Pain,Nausea Time Seen by Provider: 01/10/22 20:01 Source: patient, RN notes reviewed Mode of arrival: ambulatory Limitations: no limitations - History of Present Illness Initial comments: 21-year-old female presents to the emergency department for evaluation of lower abdominal discomfort and cramping times one week. States she also has low back pain. Reports mild nausea. States she was recently sick with Covid. Took a home test that was positive. Last menstrual cycle was end of September/beginning of October. . Denies fever, chills, headache, dizziness, chest pain, shortness of breath, dysuria, hematuria, vaginal bleeding or discharge. - Related Data Home Medications Medication Instructions Recorded Confirmed Albuterol Sulfate [Proair Hfa] 2 puff INHALATION RT-Q6H PRN 01/16/20 01/10/22 Loratadine [Claritin] 10 mg PO DAILY 01/10/22 01/10/22 Allergies Allergy/AdvReac Type Severity Reaction Status Date / Time amoxicillin Allergy Anaphylaxis Verified 01/10/22 22:39 Penicillins Allergy Anaphylaxis Verified 01/10/22 22:39 Review of Systems ROS Statement: Those systems with pertinent positive or pertinent negative responses have been documented in the HPI. ROS Other: All systems not noted in ROS Statement are negative. Past Medical History Past Medical History: Asthma Additional Past Medical History / Comment(s): CVH History of Any Multi-Drug Resistant Organisms: None Reported Past Surgical History: No Surgical Hx Reported Past Psychological History: No Psychological Hx Reported Smoking Status: Never smoker Past Alcohol Use History: Occasional Past Drug Use History: None Reported General Exam Limitations: no limitations (Well-developed, well-nourished female in no acute distress. Initial temperature 98.2, pulse 77, respirations 18, blood pressure 152/92, pulse ox 99% on room air.) General appearance: alert, in no apparent distress ENT exam: Present: normal oropharynx, mucous membranes moist Respiratory exam: Present: normal lung sounds bilaterally. Absent: respiratory distress, wheezes, rales, rhonchi, stridor Cardiovascular Exam: Present: regular rate, normal rhythm, normal heart sounds. Absent: systolic murmur, diastolic murmur, rubs, gallop, clicks GI/Abdominal exam: Present: soft, normal bowel sounds. Absent: distended, tenderness, guarding, rebound, rigid Back exam: Present: normal inspection, full ROM. Absent: CVA tenderness (R), CVA tenderness (L), paraspinal tenderness, vertebral tenderness Neurological exam: Present: alert, oriented X3, CN II-XII intact, normal gait Psychiatric exam: Present: normal affect, normal mood Skin exam: Present: warm, dry, intact, normal color. Absent: rash Course Vital Signs 01/10/22 19:23 Temperature 98.2 F Pulse Rate 97 Respiratory 18 Rate Blood Pressure 152/92 O2 Sat by Pulse 99 Oximetry - Reevaluation(s) Reevaluation #1: 01/10/22 22:47 Upon reevaluation, patient reports feeling improved. She is reassured by the ultrasound report and does not wish to wait for lab results. Given the patient is well-appearing and in no acute distress, I feel that this was reasonable. She is scheduled to see OB this week. Medical Decision Making - Medical Decision Making This is a pleasant 21-year-old female, , LMP estimated to be the end of September, who presents to the emergency department for evaluation of nausea and abdominal pain with recent positive home test. Upon exam, patient is well-appearing and in no acute distress. She is tolerating oral intake with minimal difficulty. She was given Zofran for nausea and IV fluids with improvement. Laboratory studies were obtained and are unremarkable. Ultrasound shows intrauterine with no complicating process. Patient is reassured by these findings. She will be discharged home to to follow up with OB provider as scheduled this. Prescribed vitamin. Return parameters were discussed in detail. Patient verbalizes understanding and agrees with this plan. Attending: Sadi. - Lab Data Result diagrams: 01/10/22 22:26 01/10/22 22:26 Lab Results 01/10/22 01/10/22 01/10/22 Range/Units 22:26 22:26 22:26 WBC 10.0 (3.8-10.6) k/uL RBC 4.90 (3.80-5.40) m/uL Hgb 13.8 (11.4-16.0) gm/dL Hct 41.8 (34.0-46.0) % MCV 85.3 (80.0-100.0) fL MCH 28.1 (25.0-35.0) pg MCHC 33.0 (31.0-37.0) g/dL RDW 13.6 (11.5-15.5) % Plt Count 325 (150-450) k/uL MPV 7.1 Neutrophils % 63 % Lymphocytes % 30 % Monocytes % 5 % Eosinophils % 1 % Basophils % 0 % Neutrophils # 6.4 (1.3-7.7) k/uL Lymphocytes # 3.0 (1.0-4.8) k/uL Monocytes # 0.5 (0-1.0) k/uL Eosinophils # 0.1 (0-0.7) k/uL Basophils # 0.0 (0-0.2) k/uL Sodium 136 L (137-145) mmol/L Potassium 3.9 (3.5-5.1) mmol/L Chloride 100 (98-107) mmol/L Carbon Dioxide 23 (22-30) mmol/L Anion Gap 13 mmol/L BUN 10 (7-17) mg/dL Creatinine 0.63 (0.52-1.04) mg/dL Est GFR (CKD-EPI)AfAm >90 (>60 ml/min/1.73 sqM) Est GFR (CKD-EPI)NonAf >90 (>60 ml/min/1.73 sqM) Glucose 89 (74-99) mg/dL Calcium 9.6 (8.4-10.2) mg/dL Total Bilirubin 0.4 (0.2-1.3) mg/dL AST 26 (14-36) U/L ALT 46 H (4-34) U/L Alkaline Phosphatase 88 (38-126) U/L Total Protein 7.2 (6.3-8.2) g/dL Albumin 4.5 (3.5-5.0) g/dL Lipase 49 Cancelled (23-300) U/L HCG, Quant Cancelled 50697.2 - Radiology Data Radiology results: report reviewed, image reviewed OB ultrasound was obtained. Report was reviewed in its entirety. Impression per Dr. Guido is the ultrasound gestational age is 8 weeks and 1 day. No complicating process seen. Disposition Clinical Impression: Abdominal pain during in first trimester Disposition: HOME SELF-CARE Condition: Stable Instructions (If sedation given, give patient instructions): Abdominal Pain in (ED) Additional Instructions: Increase fluids. Follow-up with OB as scheduled this week. Return to the emergency department with any new, worsening or concerning symptoms. Is patient prescribed a controlled substance at d/c from ED?: No Referrals: Saskia Metzger DO [Primary Care Provider] - 1-2 days
[2022-01-11 03:49] LABS: ALT 46 U/L (4-34); AST 26 U/L (14-36); African American GFR (CKD) >90 (>60 ml/min/1.73 sqM); Albumin 4.5 g/dL (3.5-5.0); Alkaline Phosphatase 88 U/L (38-126); Anion Gap 13 mmol/L; Blood Urea Nitrogen 10 mg/dL (7-17); Calcium 9.6 mg/dL (8.4-10.2); Carbon Dioxide 23 mmol/L (22-30); Chloride 100 mmol/L (98-107); Glucose 89 mg/dL (74-99); Non-African American GFR(CKD) >90 (>60 ml/min/1.73 sqM); Potassium 3.9 mmol/L (3.5-5.1); Sodium 136 mmol/L (137-145); Total Bilirubin 0.4 mg/dL (0.2-1.3); Total Protein 7.2 g/dL (6.3-8.2)
--- NOTE | 2022-01-11 05:00 | US ---
EXAMINATION TYPE: Transabdominal DATE OF EXAM: 01/10/2022 10:20 PM COMPARISON: NONE CLINICAL HISTORY: lower abdominal and back pain; LMP October 2021. back pain EXAM PERFORMED: Transabdominal (TA) EXAM MEASUREMENTS: GESTATIONAL AGE / DATING Physician Established: Not yet established Dates by LMP: LMP unknown Dates by First Scan: No previous this is first scan Dates by Current Scan for: (8 weeks/1 days) EDC: 08/21/22 MATERNAL ANATOMY Uterus: 12.6 x 7.4 x 5.9cm Right Ovary: Not vis Left Ovary: Not vis Post CDS / Adnexa: WNL Presence of free fluid: No Presence of corpus luteal cyst: Not seen Presence of subchorionic bleed: No GESTATION / SURVEY CRL: 1.7 (8 weeks/1 days) Yolk Sac (normal less than 6mm): 4.5mm Heart Rate: 165 bpm Rhythm: Normal IUP: Viable IUP Date of LMP: LMP unknown Beta HcG (if available): N/A IMPRESSION: The ultrasound gestational age is 8 weeks and 1 day. No complication process seen.
[2022-01-11 05:19] LABS: HCG,Quantitative Serum 83198.2 mIU/mL
== END 2022-01-10 22:47 | disposition home or self-care (01) ==
LOC: SUPCPDRO 19:14 → EC 19:14
DX: O26.891 Other specified pregnancy related conditions, first trimester (principal); R10.30 Lower abdominal pain, unspecified; J45.909 Unspecified asthma, uncomplicated; Z88.0 Allergy status to penicillin; Z79.51 Long term (current) use of inhaled steroids; Z3A.01 Less than 8 weeks gestation of pregnancy
CPT/HCPCS: 36415; 80053; 83690; 85025; 84702; 76801; 96374; 96361; 99284; J2405

== ENCOUNTER 2022-07-12 20:11 | Observation (INO) | payer OTHER ==
[2022-07-12] MEDS ORDERED: LACTATED RINGERS 1,000 ML IV SCH (20:45)
[2022-07-12] MEDS ORDERED: NIFEdipine 10 MG CAP PO ONE (21:15)
[2022-07-12 21:19] LABS: Appearance,Urine Clear (Clear); Bilirubin,Urine Negative (Negative); Blood,Urine Negative (Negative); Color,Urine Yellow; Glucose,Urine (UA) Negative (Negative); Ketones,Urine Negative (Negative); Leukocyte Esterase,Urine Negative (Negative); Nitrite,Urine Negative (Negative); Protein,Urine Trace (Negative); Specific Gravity,Urine 1.029 (1.001-1.035); Urobilinogen,Urine <2.0 mg/dL (<2.0)
[2022-07-12 21:28] LABS: ALT 41 U/L (4-34); African American GFR (CKD) >90 (>60 ml/min/1.73 sqM); Blood Urea Nitrogen 9 mg/dL (7-17); Non-African American GFR(CKD) >90 (>60 ml/min/1.73 sqM)
[2022-07-12 21:29] LABS: Creatinine,Urine Random 206.3 mg/dL
[2022-07-12] MEDS ORDERED: BETAMET ACET-BETAMETH SOD PHOS 6 MG/ML MDV IM SCH (21:30)
[2022-07-12 21:41] LABS: AST 32 U/L (14-36); LDH 286 U/L (120-246)
[2022-07-12 21:42] LABS: INR 0.9 (<1.2)
[2022-07-12 21:43] LABS: Prothrombin Time 9.3 sec (9.0-12.0)
[2022-07-12] MEDS ORDERED: ACETAMINOPHEN TAB 500 MG TAB PO PRN (21:43)
[2022-07-12 21:52] LABS: Partial Thromboplastin Time 21.2 sec (22.0-30.0)
[2022-07-12 21:53] LABS: Basophils % (A) 0 %; Eosinophils # (A) 0.1 k/uL (0-0.7); Eosinophils % (A) 1 %; HCT 35.7 % (34.0-46.0); HGB 11.7 gm/dL (11.4-16.0); Lymphocytes # (A) 2.2 k/uL (1.0-4.8); Lymphocytes % (A) 25 %; MCH 28.4 pg (25.0-35.0); MCHC 32.7 g/dL (31.0-37.0); Mean Platelet Volume 6.8; Monocytes # (A) 0.5 k/uL (0-1.0); Monocytes % (A) 5 %; Neutrophils # (A) 5.9 k/uL (1.3-7.7); Neutrophils % (A) 67 %; Platelet Count 258 k/uL (150-450); RBC 4.11 m/uL (3.80-5.40); RDW 13.6 % (11.5-15.5); WBC 8.9 k/uL (3.8-10.6)
--- NOTE | 2022-07-12 22:18 | P.HPOB ---
History of Present Illness H&P Date: 07/12/22 Chief Complaint: Headache for 2 days, increased lower extremity edema. This is a 21-year-old female 2 para 1001 EDC 08/21/2022 established by 8 week ultrasound who presents at 34-2/7 weeks' gestation. Patient is on labetalol 100 mg twice daily for chronic hypertension, but has not taken the dosage for 24 hours. She states yesterday when she took labetalol 100 mg she became clammy, nauseated, and developed a headache. She was switched to Procardia today but has not had the prescription filled. She denies visual changes or right upper quadrant pain. Fetus is been active throughout the . Past medical history is significant for chronic hypertension, severe preeclampsia and 2020, asthma, and left ventricular hypertrophy followed by Dr. Galvin of cardiology. Past surgical history is negative. Family history is noncontributory. Social history patient is single, she is engaged to be , she lives in [facility], she is a nonsmoker and denies alcohol or drug use. history is significant for blood type B positive, rubella status nonimmune. VDRL testing, hepatitis B surface antigen, HIV testing, gonorrhea and chlamydia cultures all negative. GBS cultures not yet done. Past obstetric history significant for vaginal delivery at 37 weeks gestation in July 2019, at [facility] for severe preeclampsia after maternal transfer. She gave to a 7 lbs. 13 oz. liveborn male . On exam patient is 5 foot 3 inches, 398 pounds, blood pressure 169/91, repeat 160/82. After sitting for approximately 30 minutes, patient states her headache has resolved. Repeat blood pressure 140/94, 152/79, 140/94. The general physical exam reveals 2+ lower extremity edema, 2+ reflexes, chest clear to auscultation anteriorly and posteriorly, cardiac exam regular rate and rhythm, abdomen is obviously gravid with a fundal height of approximately 50 cm. Infant is vertex to Dago's maneuvers. heart rate is consistent with reactive NST with frequent accelerations. LDH elevated at 286, ALT slightly elevated at 41, AST 32, uric acid 5. Platelets 258,000, hemoglobin 11.7, hematocrit 35.7, WBCs 8.9. Impression: 34-2/7 weeks intrauterine , chronic hypertension, suspect superimposed preeclampsia with severe features. Morbid obesity, left ventricular hypertrophy, asthma. status reassuring. Plan: I discussed this case with at [facility] who is accepting maternal transfer. Betamethasone has been given 1. Procardia XL 20 mg given 1 with good preliminary results, most recent blood pressure 144/71. We discussed the option of magnesium sulfate which we will not begin at this point. Patient is aware of the need for transfer due to gestational age. All questions discussed. Review of Systems Constitutional: Reports as per HPI Past Medical History Past Medical History: Asthma Additional Past Medical History / Comment(s): CVH History of Any Multi-Drug Resistant Organisms: None Reported Past Surgical History: No Surgical Hx Reported Smoking Status: Never smoker Medications and Allergies Home Medications Medication Instructions Recorded Confirmed Type Albuterol Sulfate [Proair Hfa] 2 puff INHALATION RT-Q6H PRN 01/16/20 07/12/22 History Loratadine [Claritin] 10 mg PO DAILY 01/10/22 07/12/22 History Aspirin [Adult Low Dose Aspirin EC] 81 mg PO DAILY 07/12/22 07/12/22 History Labetalol [Trandate] 100 mg PO BID 07/12/22 07/12/22 History Vit No.179/Iron/Folic 1 each PO DAILY 07/12/22 07/12/22 History [ Tablet] Allergies Allergy/AdvReac Type Severity Reaction Status Date / Time amoxicillin Allergy Anaphylaxis Verified 07/12/22 20:23 Penicillins Allergy Anaphylaxis Verified 07/12/22 20:23 Exam Intake and Output 07/12/22 07/12/22 07/12/22 06:59 14:59 22:59 Other: Weight 180.53 kg See dictation under HPI please Results Result Diagrams: 07/12/22 20:55 Abnormal Lab Results - Last 24 Hours (Table) 07/12/22 07/12/22 Range/Units 20:50 20:55 Creatinine 0.47 L (0.52-1.04) mg/dL ALT 41 H (4-34) U/L Lactate Dehydrogenase 286 H (120-246) U/L Urine Protein Trace H (Negative) Assessment and Plan Assessment: 34-2/7 weeks intrauterine , chronic hypertension with superimposed preeclampsia with severe features, morbid maternal obesity, chronic asthma and history of left ventricular hypertrophy. status reassuring. Plan: After discussion with Dr. Grimm at [facility] we will transfer patient at this time. Betamethasone 12mg IM 1 has been given. Labs copied and sent. Consideration for magnesium sulfate, we'll hold at this time as blood pressure has improved on Procardia 20 mg XL orally x1. All questions answered. Time with Patient: Greater than 30
--- NOTE | 2022-07-12 22:37 | P.DS ---
Providers Date of admission: 07/12/22 Expected date of discharge: 07/12/22 Attending physician: Raissa Rubio Primary care physician: Stated None Hospital Course: This is a 21-year-old female 2 para 1001 EDC 07/22/2022 established by 8 week ultrasound who presents at 34-2/7 weeks' gestation with a history of chronic hypertension, superimposed preeclampsia with possible severe features. Patient has been thoroughly assessed and stabilized, Procardia 20 mg XL given 1 orally with good results. Admitting blood pressure 169/91 accompanied by headache, most recent blood pressure 140/84 with resolution of headache noted. status is reassuring. Patient has been given betamethasone 1. She is 5'3" and 398#. She has 2(+) lower extremity edema and normal 2 (+) relflexes. Please see my thoroughly dictated history and physical for details. Patient is being transferred to [facility] under the care of . Consideration has been given for magnesium sulfate and this will be determined pending further assessment at [facility]. Patient is aware of the risks of delivering a 34 week fetus at this institution. She does have a history of severe preeclampsia with vaginal delivery at [facility] in July 2019. She is being transferred by ambulance, all questions have been answered and I believe the patient is stable for transfer at this time. Patient Condition at Discharge: Fair Plan - Discharge Summary Discharge Rx Participant: No New Discharge Prescriptions: No Action Albuterol Sulfate [Proair Hfa] 2 puff INHALATION RT-Q6H PRN PRN Reason: Shortness Of Breath Loratadine [Claritin] 10 mg PO DAILY Aspirin [Adult Low Dose Aspirin EC] 81 mg PO DAILY Labetalol [Trandate] 100 mg PO BID Vit No.179/Iron/Folic [ Tablet] 1 each PO DAILY Discharge Medication List Albuterol Sulfate [Proair Hfa] 2 puff INHALATION RT-Q6H PRN 01/16/20 [History] Loratadine [Claritin] 10 mg PO DAILY 01/10/22 [History] Aspirin [Adult Low Dose Aspirin EC] 81 mg PO DAILY 07/12/22 [History] Labetalol [Trandate] 100 mg PO BID 07/12/22 [History] Vit No.179/Iron/Folic [ Tablet] 1 each PO DAILY 07/12/22 [History] Plan of Treatment: Transfer to [facility] in [place] by ambulance. All records copied. Patient aware of the risks and benefits of this plan of care.
[2022-07-12 23:38] VITALS: BP 169/91; PULSE 97; RESP 18; TEMP 97.2
== END 2022-07-12 23:30 | disposition short-term general hospital (02) ==
LOC: FBPOP 20:11 → INTOOBSV 21:48 → 4FBP 21:48 → UNDODISIN 23:30
PROVIDERS: ADMIT Obstetrics & Gynecology; ATTEND Obstetrics & Gynecology
DX: O14.93 Unspecified pre-eclampsia, third trimester (principal); O16.3 Unspecified maternal hypertension, third trimester; O99.213 Obesity complicating pregnancy, third trimester; O99.513 Diseases of the respiratory system complicating pregnancy, third trimester; J45.909 Unspecified asthma, uncomplicated; E66.01 Morbid (severe) obesity due to excess calories; Z88.0 Allergy status to penicillin; Z79.82 Long term (current) use of aspirin; Z79.899 Other long term (current) drug therapy; Z3A.34 34 weeks gestation of pregnancy
CPT/HCPCS: 36415; 59025; 81003; 82565; 82570; 83615; 84156; 84450; 84460; 84520; 84550; 85025; 85384; 85610; 85730; 96360; 96361; 99215

== ENCOUNTER 2022-07-17 13:33 | Inpatient (IN) | payer OTHER ==
[2022-07-17] MEDS ORDERED: MAGNESIUM SULFATE GM 6 GM in SODIUM CHLORIDE 0.9% 100 ML IVPB ONE (13:56)
[2022-07-17] MEDS: LACTATED RINGERS 1,000 ML IV SCH (14:06)
[2022-07-17 14:15] LABS: Basophils % (A) 0 %; Eosinophils # (A) 0.2 k/uL (0-0.7); Eosinophils % (A) 1 %; HCT 40.9 % (34.0-46.0); Lymphocytes # (A) 2.2 k/uL (1.0-4.8); Lymphocytes % (A) 17 %; MCH 29.2 pg (25.0-35.0); MCHC 34.3 g/dL (31.0-37.0); MCV 85.3 fL (80.0-100.0); Mean Platelet Volume 7.3; Monocytes # (A) 0.5 k/uL (0-1.0); Monocytes % (A) 4 %; Neutrophils # (A) 9.7 k/uL (1.3-7.7); Neutrophils % (A) 75 %; Platelet Count 349 k/uL (150-450); RDW 13.7 % (11.5-15.5); WBC 12.9 k/uL (3.8-10.6)
[2022-07-17 14:28] LABS: ALT 87 U/L (4-34); AST 39 U/L (14-36); African American GFR (CKD) >90 (>60 ml/min/1.73 sqM); Blood Urea Nitrogen 12 mg/dL (7-17); Non-African American GFR(CKD) >90 (>60 ml/min/1.73 sqM); Uric Acid 4.6 mg/dL (3.7-7.4)
[2022-07-17] MEDS: OXYTOCIN 30 UNITS/500 ML NS 30 UNIT in SALINE 1 500ML.BAG IV SCH (14:30)
[2022-07-17 14:37] LABS: LDH 266 U/L (120-246)
[2022-07-17] MEDS: MAGNESIUM SULFATE-WATER PMX 20 GM in WATER FOR INJECTION 1 500ML.BAG IV SCH ×2 (14:46→23:24)
[2022-07-17] MEDS ORDERED: VANCOMYCIN 2,000 MG in SODIUM CHLORIDE 0.9% 250 ML IVPB ONE (14:49)
[2022-07-17] MEDS ORDERED: VANCOMYCIN IV PER PHARMACY 1 EACH MISC MISCELLANE PRN (15:00)
[2022-07-17] MEDS ORDERED: VANCOMYCIN 2,000 MG in SODIUM CHLORIDE 0.9% 500 ML 500 ML IVPB ONE (15:30)
--- NOTE | 2022-07-17 17:29 | P.HPOB ---
History of Present Illness H&P Date: 07/17/22 Chief Complaint: Medical Induction of Labor Ms. Manning is a 21 year old at 35 weeks and 0 days (by 8 week US) who presents to labor and delivery for medical induction of labor for chronic hypertension with superimposed pre-eclampsia with severe features (blood pressu res). She was recently transferred to [facility] over the past weekend after having severe-range blood pressures in [facility] OB triage. At [place] she was stabilizted on Procardia XL 60 mg BID. However, on the evening of 07/15 she had sustained breakthrough severe-range blood pressures that required IV pushes of short-acting antihypertensives. The maternal medicine was following her closely and recommended induction of labor yesterday for and maternal well-being. The patient declined induction yesterday and left the hospital against medical advice. She presents today to be induced now that she is 35 weeks. The is complicated by maternal Class III obesity with a BMI of 70. Obstetric history: 1 vaginal delivery at 36 weeks and 5 days, medically induced for gestational hypertension Maternal serologies: blood type B positive, antibody negative, rubella NON- IMMUNE, VDRL non-reactive, HIV negative, HBsAg negative, 1 hour GTT 91, GBS UNKNOWN. Past Medical History Past Medical History: Asthma Additional Past Medical History / Comment(s): CVH History of Any Multi-Drug Resistant Organisms: None Reported Past Surgical History: No Surgical Hx Reported Past Anesthesia/Blood Transfusion Reactions: No Reported Reaction Past Psychological History: No Psychological Hx Reported Smoking Status: Never smoker Past Alcohol Use History: Occasional Past Drug Use History: None Reported - Past Family History Mother Family Medical History: Thyroid Disorder Medications and Allergies Home Medications Medication Instructions Recorded Confirmed Type Albuterol Sulfate [Proair Hfa] 2 puff INHALATION RT-Q6H PRN 01/16/20 07/17/22 History Loratadine [Claritin] 10 mg PO DAILY 01/10/22 07/17/22 History Aspirin [Adult Low Dose Aspirin EC] 81 mg PO DAILY 07/12/22 07/17/22 History Vit No.179/Iron/Folic 1 each PO DAILY 07/12/22 07/17/22 History [ Tablet] NIFEdipine XL [Procardia XL] 60 mg PO BID 07/17/22 07/17/22 History Allergies Allergy/AdvReac Type Severity Reaction Status Date / Time amoxicillin Allergy Anaphylaxis Verified 07/17/22 13:39 Penicillins Allergy Anaphylaxis Verified 07/17/22 13:39 Exam Vital Signs Temp Pulse Resp BP Pulse Ox 07/17/22 13:38 97.2 F L 106 H 18 173/106 99 Intake and Output 07/16/22 07/17/22 07/17/22 22:59 06:59 14:59 Other: Weight 179.169 kg Focused physical exam performed. This is a gravid woman in no apparent distress. Cervical exam is 1cm, long, and high. Results Result Diagrams: 07/17/22 14:07 07/17/22 14:07 Assessment and Plan Assessment: 21 year old at 35 weeks and 0 days (by 8 weeks US) who presents to labor and delivery for medical induction of labor for chronic hypertension with superimposed pre-eclampsia with severe features Plan: Admit, NPO, mIVF, plan for cooks catheter, low-dose oxytocin while cooks catheter in place followed by oxytocin per protocol. Magnsium Sulfate for seizure ppx. Continue Procardia 60mg BID. AROM when appropriate. Close monitoring of fetus and mother. Time with Patient: Greater than 30 (35 minutes)
[2022-07-17] MEDS: ACETAMINOPHEN TAB 325 MG TAB PO PRN (19:51)
[2022-07-17] MEDS: BUTORPHANOL 2 MG/ML 1 ML VIAL IV PRN (20:33)
[2022-07-18] MEDS ORDERED: VANCOMYCIN 1,000 MG in SODIUM CHLORIDE 0.9% 250 ML IVPB SCH (03:00)
[2022-07-18] MEDS: LACTATED RINGERS 1,000 ML IV SCH (03:17)
[2022-07-18] MEDS: BUTORPHANOL 2 MG/ML 1 ML VIAL IV PRN (08:01)
[2022-07-18] MEDS: ACETAMINOPHEN TAB 325 MG TAB PO PRN (08:55)
[2022-07-18] MEDS ORDERED: VANCOMYCIN 2,000 MG in SODIUM CHLORIDE 0.9% 500 ML 500 ML IVPB SCH (11:00)
[2022-07-18] MEDS ORDERED: MEASLES-MUMPS-RUBELLA VACC/PF 12,500 UNIT/0.5 ML VIAL SQ ONE (13:23)
[2022-07-18] MEDS ORDERED: HYDROCORTISONE 2.5% RECTAL CREAM 30 GM TUBE RECTAL PRN (13:23)
[2022-07-18] MEDS ORDERED: diphenhydrAMINE 25 MG CAP PO PRN (13:23)
[2022-07-18] MEDS ORDERED: ZOLPIDEM 5 MG TAB PO PRN (13:23)
[2022-07-18] MEDS ORDERED: diphenhydrAMINE 50 MG/ML 1 ML VIAL IVP PRN ×2 (13:23)
[2022-07-18] MEDS ORDERED: BENZOCAINE/MENTHOL SPRAY 1 GM/SPRAY AEROSOL TOPICAL PRN (13:23)
[2022-07-18] MEDS ORDERED: diphenhydrAMINE 50 MG CAP PO PRN (13:23)
[2022-07-18] MEDS ORDERED: LANOLIN CREAM 5 GM TUBE TOPICAL PRN (13:23)
[2022-07-18] MEDS ORDERED: miSOPROStoL 25 MCG TAB RECTAL STA (13:24)
[2022-07-18] MEDS ORDERED: miSOPROStoL 200 MCG TAB RECTAL STA (13:26)
[2022-07-18] MEDS ORDERED: OXYTOCIN 30 UNITS/500 ML NS 30 UNIT in SALINE 1 500ML.BAG IV SCH (13:30)
--- NOTE | 2022-07-18 13:30 | P.PROBDLV ---
Vaginal Delivery Note - . Vaginal Delivery Note: DATE OF SERVICE: 07/18/2022 PROCEDURE: Normal Vaginal Delivery ATTENDING: Dr. Elizabeth Linton MD ESTIMATED BLOOD LOSS: 300 mL FINDINGS: VMI, Weight 2475 grams, Apgars 7/9 PROCEDURE: Patient was a 21 y/o at 35 weeks and 1 day who presented to labor and delivery for medical induction of labor for chronic hypertension with superimposed preeclampsia. Please see the admitting H&P for further details on diagnosis and management of this condition. The patient was started on Magnesium Sulfate at arrival, cooks catheter was placed, and low-dose pitocin was started. The cooks catheter fell out after about 6-7 hours and pitocin per protocol was started. The patient progressed to complete dilation. She pushed the head very effectively. Head delivered without difficulty followed by shoulders and body over intact perineum. Infant placed on maternal abdomen and bulb suctioned. Cord was clamped and cut. The was handed off to the Pediatric team. Placenta delivered whole with gentle cord traction. Oxytocin was started to facilitate uterine tone. Uterine fundus firm and bleeding minimal upon fundal massage. Perineal inspection revealed no lacerations. Patient stable . Will plan for 24 hours of Magnesium sulfate .
[2022-07-18] MEDS: IBUPROFEN 600 MG TAB PO PRN ×2 (13:32→21:09)
[2022-07-18] MEDS: OXYTOCIN 30 UNITS/500 ML NS 30 UNIT in SALINE 1 500ML.BAG IV SCH ×2 (13:34→15:25)
[2022-07-18] MEDS: MAGNESIUM SULFATE-WATER PMX 20 GM in WATER FOR INJECTION 1 500ML.BAG IV SCH (21:10)
[2022-07-19] MEDS: LACTATED RINGERS 1,000 ML IV SCH ×2 (04:34→05:30)
[2022-07-19] MEDS: MAGNESIUM SULFATE-WATER PMX 20 GM in WATER FOR INJECTION 1 500ML.BAG IV SCH ×2 (04:35→05:32)
[2022-07-19] MEDS: SENNOSIDES-DOCUSATE SODIUM 1 EACH TAB PO SCH ×3 (04:35→21:25)
[2022-07-19 07:18] LABS: Basophils % (A) 0 %; Eosinophils # (A) 0.1 k/uL (0-0.7); Eosinophils % (A) 1 %; HCT 33.1 % (34.0-46.0); Lymphocytes # (A) 2.6 k/uL (1.0-4.8); Lymphocytes % (A) 23 %; MCH 28.9 pg (25.0-35.0); MCHC 33.2 g/dL (31.0-37.0); MCV 87.2 fL (80.0-100.0); Mean Platelet Volume 6.8; Monocytes # (A) 0.7 k/uL (0-1.0); Monocytes % (A) 6 %; Neutrophils # (A) 8.1 k/uL (1.3-7.7); Neutrophils % (A) 69 %; Platelet Count 376 k/uL (150-450); RBC 3.79 m/uL (3.80-5.40); RDW 13.3 % (11.5-15.5); WBC 11.7 k/uL (3.8-10.6)
--- NOTE | 2022-07-19 08:41 | P.PNOBGVD ---
Subjective - Subjective Principal diagnosis: s/p vaginal delivery Interval history: The patient is doing well this morning and had no acute events overnight. She has no complaints this morning. She reports minimal lochia, passing flatus, voiding without difficulty, ambulating, and eating/drinking without nausea or vomiting. Infant male doing well in the nursery for prematurity. She denies chest pain, shortness of breathing, fevers, or chills overnight. She denies headache, visual disturbances, RUQ pain. She has mild swelling bilaterally in the legs. She denies pain in the legs. Patient reports: Reports appetite normal, Reports voiding normally, Reports pain well controlled, Reports ambulating normally : doing well Objective - Latest Vital Signs Latest vital signs: Vital Signs Temp Pulse Resp BP Pulse Ox 07/19/22 06:00 94 106/59 07/19/22 04:00 96.8 F L 96 16 109/54 99 07/19/22 01:00 97.0 F L 113 H 16 113/58 100 07/18/22 23:47 98.5 F 89 16 07/18/22 20:00 98.1 F 88 16 132/81 07/18/22 18:00 16 144/78 07/18/22 16:00 97.3 F L 89 16 148/76 98 07/18/22 15:15 96.6 F L 86 16 144/84 98 07/18/22 14:45 88 18 153/76 07/18/22 14:30 94 18 153/74 97 07/18/22 14:15 92 16 151/69 98 07/18/22 14:00 94 16 144/67 97 07/18/22 13:45 83 16 141/62 99 07/18/22 13:30 96.8 F L 95 16 157/71 98 Intake and Output 07/18/22 07/19/22 07/19/22 22:59 06:59 14:59 Intake Total 3.7 618.333 Output Total 428 600 400 Balance -424.3 18.333 -400 Intake: IV 200 Intake, IV Titration 3.7 418.333 Amount Magnesium Sulfate-Water 418.333 Pmx 20 gm In Water For Injection 1 500ml.bag @ 2 GM/HR 50 mls/hr IV .[facility]10[facility] Rx#:[id number] Oxytocin 30 Units/500 ml 3.7 Ns 30 unit In Saline 1 500ml.bag @ Per Protocol IV .Q0M [facility] Rx#:[id number] Output: Urine 600 400 Output, Quantitative 428 Blood Loss Other: # Voids 1 2 1 - Exam Extremities: Present: normal Abdomen: Present: normal appearance, soft Uterus: Present: normal, firm - Labs Labs: Abnormal Lab Results - Last 24 Hours (Table) 07/19/22 Range/Units 06:37 WBC 11.7 H (3.8-10.6) k/uL RBC 3.79 L (3.80-5.40) m/uL Hgb 11.0 L D (11.4-16.0) gm/dL Hct 33.1 L (34.0-46.0) % Neutrophils # 8.1 H (1.3-7.7) k/uL Assessment and Plan Assessment: 21 year old day #1 s/p vaginal delivery after medical induction for cHTN with superimposed preE with severe features at 35 weeks and 1 day gestation Plan: 1. . Meeting all milestones appropriately 2. cHTN with SI preE w/ SF - continue Procardia XL 60 mg BID. continue to monitor blood pressure. Normotensive overnight. Continue mag sulfate for 24 hours . Patient has also already made a f/u appointment with her cotton ball machine tender on 08/08. 3. Viable male infant doing well in nursery. Not ready for circumcision yet, per peds. Dispo: Continue inpatient management. Anticipate discharge home tomorrow.
[2022-07-19] MEDS: IBUPROFEN 600 MG TAB PO PRN ×2 (09:10→21:11)
[2022-07-19] MEDS: SIMETHICONE 80 MG CHEWABLE PO PRN (17:57)
[2022-07-20] MEDS: LACTATED RINGERS 1,000 ML IV SCH ×2 (02:04→09:13)
[2022-07-20] MEDS: IBUPROFEN 600 MG TAB PO PRN (09:05)
[2022-07-20] MEDS: SIMETHICONE 80 MG CHEWABLE PO PRN (09:07)
[2022-07-20 09:10] VITALS: BP 137/84; PULSE 105; RESP 18; TEMP 97.8
[2022-07-20] MEDS: SENNOSIDES-DOCUSATE SODIUM 1 EACH TAB PO SCH (09:13)
--- NOTE | 2022-07-20 10:32 | P.DS ---
Providers Date of admission: 07/17/22 13:33 Expected date of discharge: 07/20/22 Attending physician: Elizabeth Linton MD Primary care physician: Stated None - Discharge Diagnosis(es) (1) 35 weeks gestation of Current Visit: Yes Status: Acute (2) Chronic hypertension Current Visit: Yes Status: Acute (3) Status post vaginal delivery Current Visit: Yes Status: Acute (4) Preeclampsia Current Visit: No Status: Acute Hospital Course: This is a 21 yo at 35 weeks, that presents for induction of labor secondary to chronic hypertension with superimposed preeclampsia. Severe blood pressures were noted therefore induction of labor was discussed. Patient had recently been transferred to [facility] over the weekend with severe range blood pressures, she was stabilized at [facility] with Procardia XL 60 mg twice a day. Maternal- medicine were following her closely and recommended induction of labor for and maternal well-being. Patient declined induction and left AGAINST MEDICAL ADVICE. Patient presents today for induction at [facility] as she is 35 weeks. This has been completed by class III obesity with a BMI of 70. Patient was admitted and cut catheter was placed, along with low-dose Pitocin. The catheter did fall out after about 6-7 hours and Pitocin was begun per hospital protocol. Patient did progress to complete dilation. Patient had a normal spontaneous vaginal delivery of a viable female , at 1303, weight of 6-0.8 No lacerations were appreciated after delivery. Patient did have a hemorrhage and 1000 g of rectal Cytotec were given. Bleeding slowed and the uterine fundus was noted to be firm. Patient was placed on magnesium sulfate given her preeclampsia diagnosis. On preeclampsia labs elevated AST a LT were appreciated. On this day #2 patient is ambulating and voiding without difficulty. She denies signs or symptoms of preeclampsia. Repeat liver function tests are pending. remains in the nursery. Assuming liver function tests are trending downward we'll plan discharge home with follow-up in 1 week for blood pressure check Patient Condition at Discharge: Good Plan - Discharge Summary New Discharge Prescriptions: No Action Albuterol Sulfate [Proair Hfa] 2 puff INHALATION RT-Q6H PRN PRN Reason: Shortness Of Breath Loratadine [Claritin] 10 mg PO DAILY Aspirin [Adult Low Dose Aspirin EC] 81 mg PO DAILY NIFEdipine XL [Procardia XL] 60 mg PO BID Vit No.179/Iron/Folic [ Tablet] 1 each PO DAILY Discharge Medication List Albuterol Sulfate [Proair Hfa] 2 puff INHALATION RT-Q6H PRN 01/16/20 [History] Loratadine [Claritin] 10 mg PO DAILY 01/10/22 [History] Aspirin [Adult Low Dose Aspirin EC] 81 mg PO DAILY 07/12/22 [History] Vit No.179/Iron/Folic [ Tablet] 1 each PO DAILY 07/12/22 [History] NIFEdipine XL [Procardia XL] 60 mg PO BID 07/17/22 [History] Follow up Appointment(s)/Referral(s): Elizabeth Linton MD [STAFF PHYSICIAN] - 1 Week Patient Instructions/Handouts: Vaginal Delivery (GEN), Vaginal Delivery (DC) Activity/Diet/Wound Care/Special Instructions: No tub baths or intercourse until 6 weeks . Patient is counseled on signs and symptoms of preeclampsia. Patient is to continue her Procardia 60 mg twice daily, close follow-up in 1 week for blood pressure check Discharge Disposition: HOME SELF-CARE
[2022-07-20 12:09] LABS: ALT 57 U/L (4-34); AST 26 U/L (14-36)
== END 2022-07-20 14:35 | disposition home or self-care (01) | DRG 560 ==
LOC: 4FBP 13:33
PROVIDERS: ADMIT Obstetrics & Gynecology; ATTEND Obstetrics & Gynecology
PROC: 10E0XZZ Delivery of Products of Conception, External Approach (ICD-10-PCS; principal; 2022-07-18)
PROC: 3E033VJ Introduction of Other Hormone into Peripheral Vein, Percutaneous Approach (ICD-10-PCS; 2022-07-18)
DX: O11.4 Pre-existing hypertension with pre-eclampsia, complicating childbirth (principal); O10.92 Unspecified pre-existing hypertension complicating childbirth; O72.1 Other immediate postpartum hemorrhage; O99.214 Obesity complicating childbirth; O99.52 Diseases of the respiratory system complicating childbirth; Z37.0 Single live birth; Z3A.35 35 weeks gestation of pregnancy; J45.909 Unspecified asthma, uncomplicated; E66.01 Morbid (severe) obesity due to excess calories; Z79.82 Long term (current) use of aspirin; Z79.899 Other long term (current) drug therapy
CPT/HCPCS: 82565; 83615; 84450; 84460; 84520; 84550; 85025; 88307; 90707

== ENCOUNTER 2023-10-18 22:59 | Emergency (ER) | payer OTHER ==
[2023-10-18 23:10] VITALS: RESP 18; TEMP 98.1
--- NOTE | 2023-10-19 00:25 | ED ---
Lower Extremity Injury HPI - General Chief Complaint: Extremity Injury, Lower Stated Complaint: Left ankle injury Time Seen by Provider: 10/18/23 23:39 Source: patient, RN notes reviewed Mode of arrival: ambulatory Limitations: no limitations - History of Present Illness Initial Comments: This is a 23-year-old female who presents to the emergency department for a left ankle injury. States that she fell last night and rolled her left ankle. Denies sustaining any other injuries. However, states that since then she has had difficulty ambulating. She has noticed a bump on the top of her ankle as well. She was at work all day and on her feet which she believes further exacerbated this. - Related Data Home Medications Medication Instructions Recorded Confirmed Albuterol Sulfate [Proair Hfa] 2 puff INHALATION RT-Q6H PRN 01/16/20 07/17/22 Loratadine [Claritin] 10 mg PO DAILY 01/10/22 07/17/22 Aspirin [Adult Low Dose Aspirin EC] 81 mg PO DAILY 07/12/22 07/17/22 Vit No.179/Iron/Folic 1 each PO DAILY 07/12/22 07/17/22 [ Tablet] NIFEdipine XL [Procardia XL] 60 mg PO BID 07/17/22 07/17/22 Allergies Allergy/AdvReac Type Severity Reaction Status Date / Time amoxicillin Allergy Anaphylaxis Verified 07/17/22 13:39 Penicillins Allergy Anaphylaxis Verified 07/17/22 13:39 Review of Systems ROS Statement: Those systems with pertinent positive or pertinent negative responses have been documented in the HPI. ROS Other: All systems not noted in ROS Statement are negative. Past Medical History Past Medical History: Asthma Additional Past Medical History / Comment(s): CVH History of Any Multi-Drug Resistant Organisms: None Reported Past Surgical History: No Surgical Hx Reported Past Anesthesia/Blood Transfusion Reactions: No Reported Reaction Past Psychological History: No Psychological Hx Reported Smoking Status: Never smoker Past Alcohol Use History: Occasional Past Drug Use History: None Reported - Past Family History Mother Family Medical History: Thyroid Disorder General Exam Limitations: no limitations General appearance: alert, in no apparent distress Head exam: Present: atraumatic, normocephalic, normal inspection Respiratory exam: Present: normal lung sounds bilaterally. Absent: respiratory distress, wheezes, rales, rhonchi, stridor Cardiovascular Exam: Present: regular rate, normal rhythm, normal heart sounds. Absent: systolic murmur, diastolic murmur, rubs, gallop, clicks Extremities exam: Present: other (Tenderness to palpation over the anterior aspect of the left ankle. Minor swelling. Full range of motion. 2+ DP and PT pulses.) Neurological exam: Present: alert, oriented X3, CN II-XII intact Psychiatric exam: Present: normal affect, normal mood Skin exam: Present: warm, dry, intact, normal color. Absent: rash Course Vital Signs 10/18/23 10/19/23 23:06 00:56 Temperature 98.1 F Pulse Rate 95 94 Respiratory 18 18 Rate Blood Pressure 151/99 150/86 O2 Sat by Pulse 100 98 Oximetry Medical Decision Making - Medical Decision Making This is a 23 year old female who presents to the emergency department for a left ankle injury. Was pt. sent in by a medical professional or institution? @ -No Did you speak to anyone other than the patient for history? @ -No Did you review nursing and triage notes? @ -Yes, and I agree, it is accurate with regards to the patient's symptoms. Were old charts reviewed? @ -No Differential Diagnosis? @ -Differential Musculoskeletal: Muscular strain, contusion, ligament sprain, fracture, arthritis, septic arthritis, bursitis, cellulitis, muscle spasm, nerve compression, DVT, arterial occlusion, herpes zoster, electrolyte abnormality, tumor.... This is not meant to be in all inclusive list EKG interpreted by me (3pts min.)? @ -Not obtained X-rays interpreted by me (1pt min.)? @ -X-ray of the left ankle obtained. My interpretation identifies no acute fractures. CT interpreted by me (1pt min.)? @ -Not obtained U/S interpreted by me (1pt. min.)? @ -Not obtained What testing was considered but not performed? (CT, X-rays, U/S, labs)? Why? @ -None What meds were considered but not given? Why? @ -None Did you discuss the management of the patient with other professionals? @ -No Did you reconcile home meds? @ -No Was smoking cessation discussed for >3mins.? @ -No Was critical care preformed (if so, how long)? @ -No Were there social determinants of health that impacted care today? How? (Homelessness, low income, unemployed, alcoholism, drug addiction, transportation, low edu. Level, literacy, decrease access to med. care, usp, rehab)? @ -No Was there de-escalation of care discussed even if they declined? (Discuss DNR or withdrawal of care, Hospice)? @ -No What co-morbidities impacted this encounter? (DM, HTN, Smoking, COPD, CAD, Cancer, CVA, Hep., AIDS, mental health diagnosis, sleep apnea, morbid obesity)? @ -None Was patient admitted / discharged? @ -Discharged. X-ray of the left ankle obtained revealing no acute process. She declined the need for any pain medication in the emergency department. Velcro splint was applied. She was able to ambulate on her own. Advised continuing with ibuprofen and Tylenol as needed for pain relief as well as ice and elevation. Undiagnosed new problem with uncertain prognosis? @ -None Drug Therapy requiring intensive monitoring for toxicity (Heparin, Nitro, Insulin, Cardizem)? @ -None Were any procedures done? @ -None Diagnosis/symptom? @ -Left ankle sprain Acute, or Chronic, or Acute on Chronic? @ -Acute Uncomplicated (without systemic symptoms) or Complicated (systemic symptoms)? @ -Uncomplicated Side effects of treatment? @ -None Exacerbation, Progression, or Severe Exacerbation] @ -Not applicable Poses a threat to life or bodily function? @ -No Return precautions reviewed in depth, the patient is instructed to return to the emergency department with any new, worsening, or concerning symptoms. Patient verbalized understanding. This case was discussed in detail with the attending ED physician, Dr. Avitia. Presentation, findings, and treatment plan discussed in detail as well. - Radiology Data Radiology results: report reviewed, image reviewed Disposition Clinical Impression: Left ankle sprain Disposition: HOME SELF-CARE Condition: Good Instructions (If sedation given, give patient instructions): Ankle Sprain (ED) Additional Instructions: Return to the emergency department with any new, worsening, or concerning symptoms. Alternate with ibuprofen and Tylenol as needed for pain relief. Apply ice and keep the leg elevated when possible. Follow up with your primary care provider in 1-2 days. Is patient prescribed a controlled substance at d/c from ED?: No Referrals: Santosh Blevins [Primary Care Provider] - 1-2 days Time of Disposition: 12:42
--- NOTE | 2023-10-19 00:33 | XR ---
EXAM: XR Left Ankle Complete, 3 or More Views CLINICAL HISTORY: ITS.REASON XR Reason: pain TECHNIQUE: Frontal, lateral and oblique views of the left ankle. COMPARISON: No relevant prior studies available. FINDINGS: Bones/joints: Unremarkable. No acute fracture. No dislocation. Soft tissues: Unremarkable. IMPRESSION: No acute fracture. No dislocation.
[2023-10-19 00:57] VITALS: BP 150/86; PULSE 94
== END 2023-10-19 01:04 | disposition home or self-care (01) ==
LOC: EC 22:59
DX: S93.402A Sprain of unspecified ligament of left ankle, initial encounter (principal); Z88.0 Allergy status to penicillin; X58.XXXA Exposure to other specified factors, initial encounter
CPT/HCPCS: 99283

== ENCOUNTER → 2024-06-23 | Outpatient (CLI) | payer OTHER ==
[2024-06-23 15:54] VITALS: BP 136/82; PULSE 92; RESP 16; TEMP 98.1
--- NOTE | 2024-06-23 16:50 | P.SLEEP ---
History of Present Illness DATE: 06/23/2024 CONSULTATION/NEW PATIENT EVALUATION HISTORY OF PRESENT ILLNESS/SLEEP-WAKE EVALUATION: 23-year-old lady had been e valuated in the sleep center for possible obstructive sleep apnea hypopnea syndrome. SLEEP SCHEDULE: Usually sleep schedule from 3 AM until 9 AM. FALLING ASLEEP: Patient does have problems with falling asleep and may see hypercritical hallucinations while falling asleep. Patient has TV set in bedroom DURING SLEEP: Patient sleeps by herself, so no clear information about history of snoring. Patient sleeps in different positions. Patient wakes up 2 times from sleep. No history of sleep paralysis, or cataplexy. DURING THE DAY/WAKE STATE: In the morning patient wake up tired, has difficult ies to pay attention, has problems with memory and concentration. [place] sleepiness scale is 0. Patient does not take naps. PAST MEDICAL HISTORY: Asthma, hypertension during , iron deficiency anemia, left ventricular hypertrophy, nasal fracture. PAST SURGICAL HISTORY: None. MEDICATIONS: Iron supplement, B12, control. SOCIAL HISTORY: Please see below. FAMILY HISTORY: Please see below. REVIEW OF SYSTEMS: Awakenings from sleep, tiredness during the day, memory problems. No fevers. No double vision. No recent chest pain. No shortness of breath. No abdominal pain. No bleeding episodes. No blood in urine. No seizure episodes. PHYSICAL EXAMINATION: GENERAL: A pleasant patient without any distress. VITAL SIGNS: Please see below, weight 386 pounds, BMI 65.8. HEENT: PERRLA, EOMI. Evaluation of oropharynx showed tongue protrudes midline, low position of soft palate Mallampati 23, hypertrophy of tonsils, restriction of nasal breathing. NECK: Supple. No JVD. Thyroid is not palpable. 17 inches in circumference. LUNGS: Clear to percussion and to auscultation. Good air exchange. No wheezing or rhonchi. HEART: S1, S2 regular. No murmurs, gallops or rubs. ABDOMEN: Soft and nontender. Bowel sounds are present. No organomegaly appreciated. EXTREMITIES: No clubbing or cyanosis. PHOTOGRAPH INSPECTOR: Awake, alert, and oriented x3. Cranial nerves 2 to 7 intact. There is no fasciculation or atrophy noted. No focal deficits observed. ASSESSMENT: 1. Awakenings from sleep, small oropharyngeal airspace secondary to hypertrophy of tonsils and low position of soft palate, restriction of nasal breathing, wide neck 17 inches. Obstructive sleep apnea hypopnea syndrome. 2. Obesity, BMI 65.8. 3. Asthma. 4. Insomnia. 5 memory problems. 6 . History of possible hyper logical hallucinations. 7. Hypertension during . 8. History of left ventricular hypertrophy. 9 . History of iron deficiency anemia. 10. Sleep talking. PLAN: 1. Polysomnography for evaluation of patient's breathing during sleep. 2. Following plan after reading sleep study. 3. Preferable position during sleep on the side. 4. No driving if patient feels any sleepiness. Patient is aware of civil and criminal liability for unsafe driving. 5. Sleep hygiene with regular sleep time for at least 7.5-8 hours. 6. Watching and losing weight. Thank you very much for referring this patient for consultation. Sincerely, Manuel Armas MD, PhD, FAASM. Diplomat of [employer], Sleep Medicine Board by [employer] [facility] [place] cc: Kimberlee Luo EXECUTIVE ASSISTANT-C Past Medical History Past Medical History: Asthma, Coronary Artery Disease (CAD), Hyperlipidemia, Hypertension Additional Past Medical History / Comment(s): CVH (LVH), Headaches, Insomnia, Liver problems, Anemia History of Any Multi-Drug Resistant Organisms: None Reported Past Surgical History: No Surgical Hx Reported Past Anesthesia/Blood Transfusion Reactions: No Reported Reaction Past Psychological History: No Psychological Hx Reported Smoking Status: Never smoker Past Alcohol Use History: Occasional Past Drug Use History: None Reported - Past Family History Mother Family Medical History: Asthma, Hypertension, Rheumatoid Arthritis (RA), Thyroid Disorder Additional Family Medical History / Comment(s): Liver Problems, headaches, Insomnia, mental Illness Medications and Allergies Home Medications Medication Instructions Recorded Confirmed Type Albuterol Sulfate [Proair Hfa] 2 puff INHALATION RT-Q6H PRN 01/16/20 06/23/24 History Loratadine [Claritin] 10 mg PO DIRECTED PRN 01/10/22 06/23/24 History Aspirin [Adult Low Dose Aspirin EC] 81 mg PO DAILY 07/12/22 07/17/22 History Vit No.179/Iron/Folic 1 each PO DAILY 07/12/22 07/17/22 History [ Tablet] NIFEdipine XL [Procardia XL] 60 mg PO BID 07/17/22 07/17/22 History Cyanocobalamin (Vitamin B-12) 1,000 mg PO DIRECTED 06/23/24 06/23/24 History [Vitamin B-12] Ergocalciferol (Vitamin D2) 50,000 units PO WEEKLY 06/23/24 06/23/24 History [Drisdol (50,000 Iu)] Liraglutide [Saxenda] 3 mg PO DAILY 06/23/24 06/23/24 History Medroxyprogesterone Acetate 150 mg PO DIRECTED 06/23/24 06/23/24 History [Depo-Provera] Allergies Allergy/AdvReac Type Severity Reaction Status Date / Time amoxicillin Allergy Anaphylaxis Verified 07/17/22 13:39 Penicillins Allergy Anaphylaxis Verified 07/17/22 13:39 Physical Exam Vitals: Vital Signs Temp Pulse Resp BP Pulse Ox 06/23/24 15:53 98.1 F 92 16 136/82 97 Intake and Output 06/23/24 06/23/24 06/23/24 06:59 14:59 22:59 Other: Weight 175.087 kg Sleep Note - Sleep Data ESS Total: 0 - Sleep Note Sleep Note: Temperature: 98.1 F Pulse Rate: 92 Respiratory Rate: 16 Blood Pressure: 136/82 SpO2: 97 Height: 5 ft 4.2 in Weight: 175.087 kg BMI: Neck Circumference: 17
== END ==
LOC: 3 N SLEEP 15:38
PROVIDERS: ATTEND Internal Medicine
DX: G47.33 Obstructive sleep apnea (adult) (pediatric) (principal); E66.9 Obesity, unspecified; J45.909 Unspecified asthma, uncomplicated; Z88.0 Allergy status to penicillin; Z68.44 Body mass index [BMI] 60.0-69.9, adult; Z86.79 Personal history of other diseases of the circulatory system; Z86.2 Personal history of diseases of the blood and blood-forming organs and certain disorders involving the immune mechanism
CPT/HCPCS: 99211

== ENCOUNTER → 2024-08-02 | Day surgery (SDC) | payer OTHER ==
[2024-07-30 12:05] VITALS: BMI 66.9
[2024-08-02] MEDS: SODIUM CHLORIDE 0.9% 1,000 ML IV SCH (07:39)
[2024-08-02 07:46] VITALS: BP 148/73; PULSE 103; RESP 16; TEMP 98.8
--- NOTE | 2024-08-02 18:26 | P.EPPROC ---
- EP Procedure Note Electrophysiology Procedure Note: Diagnosis Recurrent syncope Twelve-lead EKG shows sinus rhythm normal [place] narrow QRS normal ST segments Tilt table test per protocol Baseline blood pressure 149/93 mmHg, baseline heart rate 87 beats a minute Patient was tilted upright on maculas 70 degrees per protocol Elevated blood pressure readings are noted There is no evidence for neurocardiogenic syncope No significant change in heart rate Patient described a variety of symptoms including lightheadedness blurred vision tingling in the arms Impression Normal twelve-lead EKG No evidence for neurocardiogenic syncope or postural tachycardia Patient complained of lightheadedness tingling in the arms blurred vision without any drop in blood pressure or change in heart rate Elevated blood pressure readings were noted
== END ==
LOC: CATHEP 07:15
PROVIDERS: ATTEND Internal Medicine Clinical Cardiac Electrophysiology
DX: R55 Syncope and collapse (principal); I10 Essential (primary) hypertension; R00.2 Palpitations; R00.0 Tachycardia, unspecified; R07.89 Other chest pain; R42 Dizziness and giddiness; H53.8 Other visual disturbances; R20.2 Paresthesia of skin; R06.09 Other forms of dyspnea; E66.01 Morbid (severe) obesity due to excess calories; Z68.44 Body mass index [BMI] 60.0-69.9, adult; Z79.51 Long term (current) use of inhaled steroids; Z79.899 Other long term (current) drug therapy; Z88.0 Allergy status to penicillin
CPT/HCPCS: 81025; 93660

== ENCOUNTER 2024-08-03 19:41 | Outpatient (CLI) | payer OTHER ==
--- NOTE | 2024-08-16 10:53 | P.PCN ---
Description of Procedure: POLYSOMNOGRAPHY REPORT PROCEDURE(S)/DATE(S): Polysomnography 08/03/2024 CLINICAL: Patient has been seen in the sleep center for evaluation of obstructive sleep apnea-hypopnea syndrome. Please see my consultation. Sleep study has been done for evaluation of patient breathing during the sleep. PROCEDURE: The standard montage for clinical polysomnography included the electroencephalogram, the electrooculogram, the mentalis surface electromyography and Lead II cardiography. The respiratory battery consisted of measurements of nasal/buccal air flow, pressure transducer measurements from nose, thoracic and/or abdominal effort and intercostal surface electromyography. Video monitoring has been done to check for any parasomnia events. Nocturnal oxyhemoglobin saturations were obtained by finger oximetry. Step-camp titration with positive airway pressure was utilized to control the respiratory events, if necessary. RESULTS: During the diagnostic sleep study sleep efficiency was 69.7%. Latency to sleep onset was significantly prolonged to 79.5 min. Sleep architecture show ed stage NI was short 3.6%, Delta sleep was decreased to 5.2%, REM sleep was was short 12.1%. Respiratory channel showed 0 obstructive apneas, 0 mixed apneas, 0 central apneas, 2 hypopneas with lowest oxygen level 93%. Total apnea hypopnea index was 0.4. Heart rate was in the range between 73 and 86, average 77. EMG showed 0.6 periodic limb movements per hour with 0.4 micro-arousals per hour . IMPRESSIONS: 1. No significant respiratory abnormalities have been documented, normal oxygenation during sleep. 2. No significant periodic limb movements have been documented. 3. Long sleep latency and low sleep efficiency may indicate insomnia versus first night adaptation response. Please see other impressions from consultation PLAN: 1. Sleep hygiene with regular time in bed for at least 7-1/2 hours. 2. Losing weight program. 3. No driving if feeling sleepiness. Thank you very much for allowing me to participate in the management of your patient. Sincerely, Manuel Armas MD, PhD, FAASM. Diplomat of [place] [employer], Sleep Medicine Board by [place] [employer]ing Instructor [facility] [place] cc: Santosh Blevins MD
== END 2024-08-04 05:40 | disposition home or self-care (01) ==
LOC: 3 N SLEEP 19:41
PROVIDERS: ATTEND Internal Medicine
DX: G47.33 Obstructive sleep apnea (adult) (pediatric) (principal); Z88.0 Allergy status to penicillin
CPT/HCPCS: 95810